=== PATIENT | male | born 1970 | race Caucasian/White ===

== ENCOUNTER 2016-09-06 10:34 | Emergency (ER) | payer OTHER ==
[2016-09-06 10:47] VITALS: O2SAT 100
--- NOTE | 2016-09-06 11:30 | ERPHSYRPT ---
- History of Present Illness Time Seen by Provider: 09/06/16 10:45 Source: patient Exam Limitations: no limitations Patient Subjective Stated Complaint: pt states around 0900 on 09/05/16 he fell backwards injuring left side of back while taking decorations down. pt c/o pain to left back and ribs. Triage Nursing Assessment: pt pink, warm, dry. no bruising or swelling noted. lung sounds clear and equal bilaterally. Occurred: yesterday Reason for Fall: tripped Injuries/Pain Location: chest Loss of Consciousness: no loss of consciousness Quality: aching Severity of Pain-Max: moderate Severity of Pain-Current: moderate Modifying Factors: Improves With: movement Associated Symptoms (Fall): denies symptoms Allergies/Adverse Reactions: No Known Drug Allergies Allergy (Verified 09/06/16 10:48) Home Medications: Desvenlafaxine Succinate [Pristiq ER] 50 mg PO BID 06/27/16 [History] Hx Tetanus, Diphtheria Vaccination/Date Given: Yes (up to date) Hx Influenza Vaccination/Date Given: No Hx Pneumococcal Vaccination/Date Given: No Immunizations Up to Date: Yes - Review of Systems Constitutional: No Symptoms Eyes: No Symptoms Ears, Nose, & Throat: No Symptoms Respiratory: No Symptoms Cardiac: Chest Pain, Other (wall pain after fall onto left side off ladder) Abdominal/Gastrointestinal: No Symptoms Musculoskeletal: Fall Skin: No Symptoms Neurological: No Symptoms Psychological: No Symptoms Endocrine: No Symptoms Hematologic/Lymphatic: No Symptoms - Past Medical History Pertinent Past Medical History: Yes Neurological History: No Pertinent History ENT History: No Pertinent History Cardiac History: Deep Vein Thrombosis Respiratory History: No Pertinent History Endocrine Medical History: No Pertinent History Musculoskeletal History: Other GI Medical History: Hepatitis History: No Pertinent History Psycho-Social History: Anxiety, Bipolar, Depression Male Reproductive Disorders: No Pertinent History Other Medical History: HEP C. DVT IN LEFT LEG. CELLULTIES LEFT LEG - Past Surgical History Past Surgical History: Yes Neuro Surgical History: No Pertinent History Cardiac: No Pertinent History Respiratory: No Pertinent History Gastrointestinal: No Pertinent History Genitourinary: No Pertinent History Musculoskeletal: Orthopedic Surgery Male Surgical History: No Pertinent History Other Surgical History: cyst removed. CARPAL TUNNEL IN RIGHT HAND - Social History Smoking Status: Current every day smoker How long have you smoked: 27 Exposure to second hand smoke: Yes Drug Use: none Patient Lives Alone: No Significant Family History: heart disease - Nursing Vital Signs Nursing Vital Signs: Initial Vital Signs Temperature 98.5 F Temperature Source Oral Pulse Rate 68 Respiratory Rate 18 Blood Pressure 141/87 Pain Intensity 9 - Benitez Coma Score Best Eye Response (Benitez): (4) open spontaneously Best Verbal Response (Benitez): (5) oriented Best Motor Response (Benitez): (6) obeys commands [place] Total: 15 - Physical Exam General Appearance: mild distress Head Injury: no evidence of injury Eye Exam: PERRL/EOMI, eyes nml inspection ENT Exam: airway nml Neck Exam: supple, trachea midline, full range of motion, normal alignment Respiratory/Chest Exam: chest tenderness (Mild tenderness left chest wall without ecchymosis or abrasion), normal breath sounds Cardiovascular Exam: normal heart sounds, regular rate/rhythm, normal peripheral pulses Gastrointestinal Exam: soft, normal bowel sounds Back Exam: normal inspection, normal range of motion Extremity Exam: normal inspection, normal range of motion, pelvis stable Neurologic Exam: alert, oriented x 3, cooperative Skin Exam: normal color, warm, dry SpO2 Interpretation: normal SpO2: 100 Oxygen Delivery: Room Air - Course Nursing assessment & vital signs reviewed: Yes - Radiology Exams Chest X-ray Interpretation: Discussed w/ radiologist (Few left lung granulomas. No acute abn. Specifically, no rib Fx noted.) Ordered Tests: Active Orders 24 hr Category Date Time Status CHEST 2 VIEWS (PA AND LAT) Stat Exams 09/06/16 11:08 Completed RIBS UNILATERAL Stat Exams 09/06/16 11:08 Completed - Progress Progress: improved Counseled pt/family regarding: diagnosis, need for follow-up (with PCP 1 week), rad results - Departure Time of Disposition: 11:35 Departure Disposition: Home Clinical Impression: Chest wall contusion Qualifiers: Encounter type: subsequent encounter Laterality: left Qualified Code(s): S20.212D - Contusion of left front wall of thorax, subsequent encounter Condition: Stable Critical Care Time: No
--- NOTE | 2016-09-06 11:34 | XRAY ---
Indication: Pain following fall. Comparison: None 2 views of the left ribs demonstrates a few left lung calcified granulomas. No other bony, articular, or soft tissue abnormalities.
--- NOTE | 2016-09-06 11:36 | XRAY ---
Indication: Left-sided pain following fall. Comparison: June 27, 2016 PA/lateral chest remains slightly underinflated again with bilateral calcified granulomas and minimal left base atelectasis/scarring. No focal infiltrate, consolidation, effusion, or pneumothorax. Heart is not enlarged. Bony thorax intact. Impression: Stable nonacute chest with chronic features.
[2016-09-06 12:05] VITALS: BP 127/67; PULSE 76
== END 2016-09-06 12:04 | disposition home or self-care (01) ==
LOC: ED 10:34
DX: S20.212D Contusion of left front wall of thorax, subsequent encounter (principal); W01.0XXA Fall on same level from slipping, tripping and stumbling without subsequent striking against object, initial encounter
CPT/HCPCS: 71020; 71100; 99282

== ENCOUNTER 2017-01-06 15:42 | Emergency (ER) | payer OTHER ==
[2017-01-06] MEDS ORDERED: MOTRIN 600 MG PO ONE (15:46)
[2017-01-06] MEDS ORDERED: MOTRIN 600 MG ONE (15:51)
--- NOTE | 2017-01-06 15:53 | ERPHSYRPT ---
- History of Present Illness Time Seen by Provider: 01/06/17 15:46 Source: patient, EMS Exam Limitations: no limitations Physician History: patient tripped and fell straining his left knee after his dog got tangled around his left lower leg; pain in left knee from twisting when he fell; no prior hx; no direct trauma; no other injuries or complaints Method of Injury: fell, twisted Occurred: just prior to arrival, this afternoon Quality: aching Severity of Pain-Max: moderate Severity of Pain-Current: mild Lower Extremities Pain: knee: left (pain anterior and posterior; able to ambulate and bear wt after fall) Modifying Factors: Improves With: immobilization (helps) Associated Symptoms: none Allergies/Adverse Reactions: No Known Drug Allergies Allergy (Verified 01/06/17 15:58) Hx Tetanus, Diphtheria Vaccination/Date Given: Yes (up to date) Hx Influenza Vaccination/Date Given: No Hx Pneumococcal Vaccination/Date Given: No - Review of Systems Constitutional: No Symptoms Eyes: No Symptoms Ears, Nose, & Throat: No Symptoms Respiratory: No Cough, No Dyspnea, No Wheezing Cardiac: No Chest Pain, No Palpitations, No Syncope Abdominal/Gastrointestinal: No Abdominal Pain, No Nausea, No Vomiting, No Diarrhea Genitourinary Symptoms: No Symptoms Musculoskeletal: Arthralgias, Fall, Injury (left knee), Joint Pain (left knee), No Joint Redness, No Joint Swelling Skin: No Symptoms Neurological: No Symptoms Psychological: No Symptoms Endocrine: No Symptoms Hematologic/Lymphatic: No Symptoms Immunological/Allergic: No Symptoms - Past Medical History Pertinent Past Medical History: Yes Neurological History: No Pertinent History ENT History: No Pertinent History Cardiac History: Deep Vein Thrombosis Respiratory History: No Pertinent History Endocrine Medical History: No Pertinent History Musculoskeletal History: Other GI Medical History: Hepatitis History: No Pertinent History Psycho-Social History: Anxiety, Bipolar, Depression Male Reproductive Disorders: No Pertinent History Other Medical History: HEP C. DVT IN LEFT LEG. CELLULTIES LEFT LEG - Past Surgical History Past Surgical History: Yes Neuro Surgical History: No Pertinent History Cardiac: No Pertinent History Respiratory: No Pertinent History Gastrointestinal: No Pertinent History Genitourinary: No Pertinent History Musculoskeletal: Orthopedic Surgery Male Surgical History: No Pertinent History Other Surgical History: cyst removed. CARPAL TUNNEL IN RIGHT HAND - Social History Smoking Status: Current every day smoker How long have you smoked: 27 Exposure to second hand smoke: Yes Alcohol Use: None Drug Use: none Patient Lives Alone: No Significant Family History: heart disease - Nursing Vital Signs Nursing Vital Signs: Initial Vital Signs Temperature 98.4 F Pulse Rate 72 Respiratory Rate 14 Blood Pressure [Right Arm] 124/75 Pain Intensity 9 - Physical Exam General Appearance: mild distress (pain left knee), alert Eyes, Ears, Nose, Throat Exam: normal ENT inspection, TMs normal, pharynx normal , moist mucous membranes Neck Exam: normal inspection, non-tender, supple, full range of motion Cardiovascular/Respiratory Exam: chest non-tender, normal breath sounds, regular rate/rhythm, heart sounds normal, no ecchymosis, no JVD, no M/R/G, no respiratory distress Gastrointestinal/Abdominal Exam: non-tender, soft, no organomegaly Back Exam: normal inspection, normal range of motion, No CVA tenderness, No vertebral tenderness, No rash Hips Exam: bilateral: non-tender, normal inspection, normal range of motion, no evidence of injury Legs Exam: bilateral leg: non-tender, normal inspection, normal range of motion , no evidence of injury Knees Exam: right knee: non-tender, left knee: bone tenderness (mild anterior patella), pain (anterior and posterior), soft tissue tenderness (medial and posterior mild), bilateral knee: normal inspection, normal range of motion, no evidence of injury, other (stable to stress; FROM; no ilan sign; no laxity) Ankle Exam: bilateral ankle: non-tender, normal inspection, normal range of motion, no evidence of injury Foot Exam: bilateral foot: non-tender, normal inspection, normal range of motion , no evidence of injury DTR - Lower Extremities Exam: knee (R): 4+, knee (L): 4+ Neuro/Tendon Exam: normal sensation, normal motor functions, normal tendon functions, responds to pain, no evidence tendon injury Mental Status Exam: alert, oriented x 3, cooperative Skin Exam: normal color, warm, dry, No rash Procedures - Splinting Location of Splint: Left, Knee Type of Splint: Other (knee immobilyzer) Splint Applied By: ED Nurse Pre-Proc Neuro Vasc Exam: normal Post-Proc Neuro Vasc Exam: neurovascular intact, unchanged from pre-exam - Course Nursing assessment & vital signs reviewed: Yes - Radiology Exams Left Knee X-ray Interpretation: Interpreted by me, No Fracture, Other (mild DJD) Ordered Tests: Active Orders 24 hr Category Date Time Status Cold Application STAT Care 01/06/17 15:47 Active Re-Check Vital Signs STAT Care 01/06/17 15:46 Active Splint STAT Care 01/06/17 16:09 Ordered KNEE (3 VIEWS) Stat Exams 01/06/17 15:47 Ordered Medication Summary Discontinued Medications Generic Name Dose Route Start Last Admin Trade Name Judit PRN Reason Stop Dose Admin Ibuprofen 600 mg 01/06/17 15:46 01/06/17 15:52 Motrin 600 Mg PO 01/06/17 15:47 600 mg STAT ONE Administration Ibuprofen Confirm 01/06/17 15:51 Motrin 600 Mg Administered 01/06/17 15:52 Dose 600 mg .ROUTE .STK-MED ONE - Progress Progress: improved (after xr, meds and aplint application), pain not gone completely, re-examined (after xr and meds) Progress Note: 01/06/17 15:54 ice applied; meds given; xr pending; will recheck after xr 01/06/17 16:12 reviewed xr findings with patient, knee immobilyzer applied under my directions ; no NV compromise after; treatment plan and instructions given Counseled pt/family regarding: diagnosis, need for follow-up, rad results - Departure Time of Disposition: 16:14 Departure Disposition: Home Clinical Impression: Strain of left knee Condition: Stable Critical Care Time: No Referrals: JEANNE CORBETT MD [Primary Care Provider] - Instructions: Knee Sprain Additional Instructions: Acute Sprain Instructions lower extremity; R.I.C.E.; wear splint/immobilyzer as directed; observe for neuro-vascular compromise ( change in color; increased pain; cold to touch); Use crutches, walker, cane as directed. FU LMD/ specialist as directed; call for appointment as directed; Return if problems; Take meds as prescribed. Follow-up with family doctor as directed. Call for appointment. Return if any problems. If you smoke please stop. Call or follow up with your family doctor for assistance if you need it to stop. Please wear your seatbelt when driving. Have a nice day. Thank you for allowing us to participate in your care today. :o) Dr Mason Simpson Prescriptions: Naproxen Sodium [Anaprox Ds] 550 mg PO Q8HPRN PRN #14 tablet PRN Reason: Pain
[2017-01-06 15:56] VITALS: BP 124/75; PULSE 72; O2SAT 99
--- NOTE | 2017-01-06 19:35 | XRAY ---
Indication: Pain following twisting injury. Comparison: February 09, 2011. 3 views of the left knee again demonstrates mild medial compartment degenerative joint space narrowing/spurring. New spurring of the lateral tibial plateau. No acute fracture, dislocation, or soft tissue abnormalities.
== END 2017-01-06 16:27 | disposition home or self-care (01) ==
LOC: ED 15:42
DX: S83.92XA Sprain of unspecified site of left knee, initial encounter (principal); W01.0XXA Fall on same level from slipping, tripping and stumbling without subsequent striking against object, initial encounter
CPT/HCPCS: 73562; 99283; L1830; A9270-GY

== ENCOUNTER 2017-08-26 14:19 | Emergency (ER) | payer OTHER ==
[2017-08-26 14:33] VITALS: PULSE 72
--- NOTE | 2017-08-26 15:07 | ERPHSYRPT ---
- History of Present Illness Time Seen by Provider: 08/26/17 14:58 Source: patient Exam Limitations: no limitations Patient Subjective Stated Complaint: c/o throat pain, nasal congestion and eyes having drainage last 1-2 days Triage Nursing Assessment: c/o sore throat, nasal congestion and eye drainage. Physician History: 47 year old white male arrives with complaint of sorethroat, nasal congestion, drainage from eyes and cough for 2-3 days Pmh Hepatitis, dvt, anxiety bipolar depression hepatitis c cellulitis PSH carpal tunnel right hand Timing/Duration: day(s) (3 days) Severity: moderate Modifying Factors: Improves With: nothing Associated Symptoms: cough, other (sore throat, conjunctivitis), No nausea, No vomiting, No abdominal pain, No shortness of breath, No heartburn, No diaphoresis, No chills, No chest pain, No fever, No headaches, No loss of appetite, No malaise, No rash, No syncope, No seizure, No weakness Allergies/Adverse Reactions: No Known Drug Allergies Allergy (Verified 01/06/17 15:58) Hx Tetanus, Diphtheria Vaccination/Date Given: Yes Hx Influenza Vaccination/Date Given: Yes Hx Pneumococcal Vaccination/Date Given: No Immunizations Up to Date: Yes - Review of Systems Constitutional: No Fever, No Chills, No Fatigue, No Lethargy, No Malaise, No Night Sweats, No Weight Loss Eyes: Eye Pain, Eye Redness, Other (eyes matted shut in am), No Discharge, No Photophobia, No Tearing, No Vision Changes, No Double Vision, No Foreign Body Sensation Ears, Nose, & Throat: Nose Congestion, Nose Discharge, Sinus Drainage, Throat Pain, No Ear Pain, No Ear Discharge, No Hearing Changes, No Tinnitus, No Epistaxis, No Mouth Pain, No Mouth Swelling, No Loose Teeth, No Throat Swelling , No Hoarse, No Painful Swallowing, No Snoring, No Stridor Respiratory: Cough, No Cyanosis, No Dyspnea, No Dyspnea on Exertion (LEON), No Stridor, No Wheezing Cardiac: No Chest Pain, No Edema, No Syncope Abdominal/Gastrointestinal: No Symptoms, No Abdominal Pain, No Nausea, No Vomiting, No Diarrhea, No Constipation, No Hematochezia, No Melena, No Dysphagia , No Appetite Changes Genitourinary Symptoms: No Dysuria Musculoskeletal: No Back Pain, No Neck Pain Skin: No Rash Neurological: No Dizziness, No Focal Weakness, No Sensory Changes Psychological: No Symptoms Endocrine: No Symptoms All Other Systems: Reviewed and Negative - Past Medical History Pertinent Past Medical History: Yes Neurological History: No Pertinent History ENT History: No Pertinent History Cardiac History: Deep Vein Thrombosis Respiratory History: No Pertinent History Endocrine Medical History: No Pertinent History Musculoskeletal History: Other GI Medical History: Hepatitis History: No Pertinent History Psycho-Social History: Anxiety, Bipolar, Depression Male Reproductive Disorders: No Pertinent History Other Medical History: HEP C. DVT IN LEFT LEG. CELLULTIES LEFT LEG - Past Surgical History Past Surgical History: Yes Neuro Surgical History: No Pertinent History Cardiac: No Pertinent History Respiratory: No Pertinent History Gastrointestinal: No Pertinent History Genitourinary: No Pertinent History Musculoskeletal: Orthopedic Surgery Male Surgical History: No Pertinent History Other Surgical History: cyst removed. CARPAL TUNNEL IN RIGHT HAND - Social History Smoking Status: Current every day smoker How long have you smoked: 27 Exposure to second hand smoke: Yes Alcohol Use: None Drug Use: none Patient Lives Alone: No Significant Family History: heart disease - Nursing Vital Signs Nursing Vital Signs: Initial Vital Signs Temperature 98.2 F 08/26/17 14:30 Pulse Rate 72 08/26/17 14:30 Respiratory Rate 20 08/26/17 14:30 Blood Pressure 148/94 08/26/17 14:30 O2 Sat by Pulse Oximetry 97 08/26/17 14:30 Pain Scale Pain Intensity 5 - Physical Exam General Appearance: mild distress, alert Eye Exam: other (eyes perrla eomi, fundi unremarkable, both conjunctiva erythematous) Ears, Nose, Throat Exam: TMs normal, pharyngeal erythema, other (throat clear, boggy erythematous nasal mucosa, yellow drainage left naris) Neck Exam: normal inspection, non-tender, supple, full range of motion Respiratory Exam: normal breath sounds, lungs clear, No respiratory distress Cardiovascular Exam: regular rate/rhythm, normal heart sounds, normal peripheral pulses Gastrointestinal/Abdomen Exam: soft, normal bowel sounds, No tenderness, No mass Back Exam: normal inspection, normal range of motion, No CVA tenderness, No vertebral tenderness Extremity Exam: normal inspection, normal range of motion, pelvis stable Neurologic Exam: alert, oriented x 3, cooperative, normal mood/affect, nml cerebellar function, nml station & gait, sensation nml, No motor deficits Skin Exam: normal color, warm, dry, No rash Lymphatic Exam: No adenopathy SpO2 Interpretation: normal (97%) SpO2: 97 Oxygen Delivery: Room Air - Course Nursing assessment & vital signs reviewed: Yes - Progress Progress: improved Progress Note: 08/26/17 15:08 47-year-old white male with history of DVT, hepatitis, anxiety, bipolar Patient arrives with complaints of nasal congestion drainage from the nose, sore throat, bilateral conjunctivae colitis symptoms for 2-3 days. No vomiting. On physical examination patient has a boggy erythematous nasal mucosa with yellow drainage in the left naris his throat is erythematous. He does have bilateral conjunctivitis Will go ahead and place patient on Keflex 500 mg orally every 6 hours #40. He is to take plenty of fluids. Tylenol every 4-6 hours as needed for pain. Follow-up with his family doctor if symptoms worsen over 48 hours or persist longer than one week - Departure Time of Disposition: 15:09 Departure Disposition: Home Clinical Impression: Sinusitis Qualifiers: Sinusitis location: unspecified location Chronicity: acute Recurrence: non- recurrent Qualified Code(s): J01.90 - Acute sinusitis, unspecified Conjunctivitis Qualifiers: Conjunctivitis type: acute Acute conjunctivitis type: bacterial Laterality: bilateral Qualified Code(s): H10.33 - Unspecified acute conjunctivitis, bilateral Pharyngitis Qualifiers: Pharyngitis/tonsillitis etiology: unspecified etiology Qualified Code(s): J02.9 - Acute pharyngitis, unspecified Condition: Fair Critical Care Time: No Referrals: JEANNE CORBETT MD [Primary Care Provider] - Additional Instructions: Return home. Plenty of fluids. Keflex 500 mg orally 4 times a day for 10 days. Tylenol every 4 hours as needed for temperature greater than 100.5 or pain. Follow-up with your family doctor if symptoms are worse, nowhere 48 hours, or persist longer than one week. Return for acute distress or for severe symptoms. Prescriptions: Cephalexin Mh 500 mg [Keflex 500 mg] 500 mg PO Q6H #40 capsule
[2017-08-26 15:28] VITALS: BP 137/93; O2SAT 96
== END 2017-08-26 15:25 | disposition home or self-care (01) ==
LOC: ED 14:19
DX: J01.90 Acute sinusitis, unspecified (principal); H10.33 Unspecified acute conjunctivitis, bilateral; J02.9 Acute pharyngitis, unspecified; R05 Cough
CPT/HCPCS: 99281

== ENCOUNTER 2017-12-02 04:25 | Emergency (ER) | payer OTHER ==
[2017-12-02 04:38] VITALS: PULSE 68
--- NOTE | 2017-12-02 04:52 | ERPHSYRPT ---
- History of Present Illness Time Seen by Provider: 12/02/17 04:51 Source: patient Exam Limitations: no limitations Patient Subjective Stated Complaint: pt states he tripped over an extension cord at home and dropped his coffee cup and cut his left arm Triage Nursing Assessment: pt alert and oriented, washcloth held in place over left forearm, laceration approximately 4 cm long Physician History: pt states he tripped over an extension cord at home and dropped his coffee cup and cut his left forearm Occurred: just prior to arrival Method of Injury: incised Severity of Pain-Max: none Severity of Pain-Current: none Extremities Pain Location: forearm: left Modifying Factors: Improves With: cold therapy Associated Symptoms: none Allergies/Adverse Reactions: No Known Drug Allergies Allergy (Verified 01/06/17 15:58) Hx Tetanus, Diphtheria Vaccination/Date Given: (unknown) Hx Influenza Vaccination/Date Given: Yes Hx Pneumococcal Vaccination/Date Given: No - Review of Systems Constitutional: No Symptoms Eyes: No Symptoms Ears, Nose, & Throat: No Symptoms Respiratory: No Symptoms Cardiac: No Symptoms Abdominal/Gastrointestinal: No Symptoms Skin: Other (laceration on left forearm) - Past Medical History Pertinent Past Medical History: Yes Neurological History: No Pertinent History ENT History: No Pertinent History Cardiac History: Deep Vein Thrombosis Respiratory History: No Pertinent History Endocrine Medical History: No Pertinent History Musculoskeletal History: Other GI Medical History: Hepatitis History: No Pertinent History Psycho-Social History: Anxiety, Bipolar, Depression Male Reproductive Disorders: No Pertinent History Other Medical History: HEP C. DVT IN LEFT LEG. CELLULTIES LEFT LEG - Past Surgical History Past Surgical History: Yes Neuro Surgical History: No Pertinent History Cardiac: No Pertinent History Respiratory: No Pertinent History Gastrointestinal: No Pertinent History Genitourinary: No Pertinent History Musculoskeletal: Orthopedic Surgery Male Surgical History: No Pertinent History Other Surgical History: cyst removed. CARPAL TUNNEL IN RIGHT HAND - Social History Smoking Status: Current every day smoker How long have you smoked: 27 Exposure to second hand smoke: Yes Alcohol Use: None Drug Use: none Patient Lives Alone: No Significant Family History: heart disease - Nursing Vital Signs Nursing Vital Signs: Initial Vital Signs Temperature 98.7 F 12/02/17 04:32 Pulse Rate 68 12/02/17 04:32 Respiratory Rate 18 12/02/17 04:32 Blood Pressure 158/99 12/02/17 04:32 O2 Sat by Pulse Oximetry 98 12/02/17 04:32 Pain Scale Pain Intensity 8 - Physical Exam General Appearance: no apparent distress Eyes, Ears, Nose, Throat Exam: normal ENT inspection Neck Exam: normal inspection SpO2: 98 Oxygen Delivery: Room Air Procedures - Laceration/Wound Repair Left Arm Wound Location: Left, lower arm Wound Length (cm): 4 Wound's Depth, Shape: superficial Wound Explored: clean Irrigated: Yes Hibiclens Prep: Yes Anesthesia: local, 1% Lidocaine Volume Anesthetic (ccs): 5 Wound Debrided: minimal Wound Repaired With: sutures Suture Size/Type: 3-0, ethilon Number of Sutures: 5 Layer Closure?: No Sterile Dressing Applied?: Yes Splint Applied?: No Sling Applied?: No - Course Nursing assessment & vital signs reviewed: Yes - Progress Progress: improved Counseled pt/family regarding: diagnosis, need for follow-up - Departure Time of Disposition: 05:07 Departure Disposition: Home Clinical Impression: Laceration of forearm Qualifiers: Encounter type: initial encounter Laterality: left Qualified Code(s): S51.812A - Laceration without foreign body of left forearm, initial encounter Condition: Stable Critical Care Time: No Referrals: JEANNE CORBETT MD [Primary Care Provider] - Instructions: Laceration Repair With Stitches (DC) Additional Instructions: JESUS VENTURAMARILEE PATEL was seen on 12/02/17 n the Emergency Room. At that time you were treated for an emergent condition, during your visit Laboratory, Radiology and/or other procedures may have been ordered. It is very important that you follow-up with your Primary Care Physician JEANNE CORBETT within the next 24-48 hours to review your Emergency Room visit and the final results of testing that was ordered. Some test results such as Urine Cultures, Blood Cultures, and other cultures if ordered will not be finalized for 24-48 hours. If you do not have a Primary Care Provider please call the medical records department at [phone] to obtain a copy of your results or you may sign into our patient portal to obtain these results by visiting us @ [email or web address] and completing the following steps: 1. Click on the Patient Portal link 2. Click the Patient Self Enrollment Link to complete the enrollment form and entering your 3. Once the enrollment form is completed you will receive an email with a temporary ID and password at the email address you provided. 4. Next choose a user name and password. Your user name must be at least 4 characters long and your password must be at least 4 characters long. 5. Choose a security question from the list and provide your answer to the question. If you already have signed into the Health Portal you may access your Health Care Information 26/03 by the following steps: 1. Login to our website @ [email or web address] 2. Enter your original user name and password. FAQS The [facility] Health Portal is an online tool that contains your Lab Results, Radiology Reports, Visit History, Discharge Instructions and Health Summary Lab and Radiology Results will not be available for 72 hours on the portal. The Portal is a secure site, passwords are encryted and URLs are re-written so they cannot be copied and pasted. You and authorized family members are the only ones who can access your Portal. Also there is a timeout feature that protects your information if you leave the Portal page open. If you have technical difficulty please use the Contact Us link on the page this will allow you to submit any questions you have regarding the Portal or you may contact the Medical Record Department at [phone]. LACERATION CARE 1. Do not use peroxide, merthiolate, alcohol, or betadine. 2. Keep wound clean and dry. 3. Change dressing if it becomes wet or soiled. 4. If you must work, wear protective covering. 5. You may return to the emergency department or see your family physician for suture removal. 6. See your family physician or return to the emergency department for any of the following signs or symptoms: A. Redness B. Swelling C. Discolored drainage D. Red streaks E. Elevated temperature F. Other signs of infection Forms: Work/School Release Form
[2017-12-02] MEDS ORDERED: Adacel Vial IM ONE ×2 (05:07→05:10)
[2017-12-02 05:26] VITALS: BP 139/96; O2SAT 96
== END 2017-12-02 05:23 | disposition home or self-care (01) ==
LOC: ED 04:25
PROC: 0HQEXZZ Repair Left Lower Arm Skin, External Approach (ICD-10-PCS; principal; 2017-12-02)
DX: S51.812A Laceration without foreign body of left forearm, initial encounter (principal); W26.8XXA Contact with other sharp object(s), not elsewhere classified, initial encounter
CPT/HCPCS: 12002; 90471; 90715; 96372; 99284

== ENCOUNTER 2018-01-16 06:34 | Emergency (ER) | payer OTHER ==
--- NOTE | 2018-01-16 07:35 | ERPHSYRPT ---
- History of Present Illness Time Seen by Provider: 01/16/18 07:28 Source: patient Exam Limitations: no limitations Patient Subjective Stated Complaint: pt states "i have been working a lot of hours lately at the [employer] and just feel like i am drained." pt co excessive tiredness and states he aches all over and feels like "i got ran over by a truck." pt is concerned also bc he has a ho hep c and is unsure if his symptoms relate to that. Triage Nursing Assessment: pt a&o x3; skin p, w, & d; ambulated to room per self ; no obvious distress or discomfort noted. Physician History: patient with history of hep C who presents with generalized weakness for past 5- 7 days. Patient states he has been working 16 hours shifts for the past month and feels like that he is "wearing out." Patient also complains of body ache and congestive cough, but denies any fever/chills, chest pain, shortness of breath, diaphoresis, palpitation, sore throat, back/abdominal pain or urinary symptoms. Patient tried to get time off but his employer could not fill his request. Timing/Duration: day(s) (5-7), gradual onset Severity: mild Modifying Factors: Improves With: rest (improves) Associated Symptoms: weakness, No nausea, No vomiting, No abdominal pain, No shortness of breath, No chest pain, No fever, No headaches, No loss of appetite , No syncope Allergies/Adverse Reactions: No Known Drug Allergies Allergy (Verified 01/16/18 06:48) Hx Tetanus, Diphtheria Vaccination/Date Given: Yes Hx Influenza Vaccination/Date Given: Yes Hx Pneumococcal Vaccination/Date Given: No - Review of Systems Constitutional: No Fever, No Chills Eyes: No Symptoms Ears, Nose, & Throat: No Symptoms Respiratory: Cough, No Dyspnea, No Dyspnea on Exertion (LEON) Cardiac: No Symptoms, No Chest Pain, No Edema, No Syncope Abdominal/Gastrointestinal: No Symptoms, No Abdominal Pain, No Nausea, No Vomiting, No Diarrhea Genitourinary Symptoms: No Symptoms, No Dysuria Musculoskeletal: Myalgias, No Back Pain, No Neck Pain Skin: No Symptoms, No Rash Neurological: No Symptoms, No Dizziness, No Focal Weakness, No Sensory Changes Psychological: No Symptoms Endocrine: No Symptoms Hematologic/Lymphatic: No Symptoms Immunological/Allergic: No Symptoms All Other Systems: Reviewed and Negative - Past Medical History Pertinent Past Medical History: Yes Neurological History: No Pertinent History ENT History: No Pertinent History Cardiac History: Deep Vein Thrombosis Respiratory History: No Pertinent History Endocrine Medical History: No Pertinent History Musculoskeletal History: Other GI Medical History: Hepatitis History: No Pertinent History Psycho-Social History: Anxiety, Bipolar, Depression Male Reproductive Disorders: No Pertinent History Other Medical History: HEP C. DVT IN LEFT LEG. CELLULTIES LEFT LEG - Past Surgical History Past Surgical History: Yes Neuro Surgical History: No Pertinent History Cardiac: No Pertinent History Respiratory: No Pertinent History Gastrointestinal: No Pertinent History Genitourinary: No Pertinent History Musculoskeletal: Orthopedic Surgery Male Surgical History: No Pertinent History Other Surgical History: cyst removed. CARPAL TUNNEL IN RIGHT HAND - Social History Smoking Status: Current every day smoker How long have you smoked: 30 years Exposure to second hand smoke: No Alcohol Use: None Drug Use: none Patient Lives Alone: No Significant Family History: heart disease - Nursing Vital Signs Nursing Vital Signs: Initial Vital Signs Temperature 98.3 F 01/16/18 06:41 Pulse Rate 72 01/16/18 06:41 Respiratory Rate 16 01/16/18 06:41 Blood Pressure 126/88 01/16/18 06:41 O2 Sat by Pulse Oximetry 98 01/16/18 06:41 Pain Scale Pain Intensity 0 - Physical Exam General Appearance: no apparent distress, alert, other (resting comfortably) Eye Exam: PERRL/EOMI, eyes nml inspection Ears, Nose, Throat Exam: normal ENT inspection, TMs normal, pharynx normal, moist mucous membranes Neck Exam: normal inspection, non-tender, supple, full range of motion Respiratory Exam: normal breath sounds, lungs clear, No respiratory distress Cardiovascular Exam: regular rate/rhythm, normal heart sounds, normal peripheral pulses Gastrointestinal/Abdomen Exam: soft, normal bowel sounds, No tenderness, No mass Back Exam: normal inspection, normal range of motion, No CVA tenderness, No vertebral tenderness Extremity Exam: normal inspection, normal range of motion, pelvis stable Neurologic Exam: alert, oriented x 3, cooperative, normal mood/affect, nml cerebellar function, nml station & gait, sensation nml, No motor deficits Skin Exam: normal color, warm, dry, No rash Lymphatic Exam: No adenopathy SpO2: 98 Oxygen Delivery: Room Air - Course Nursing assessment & vital signs reviewed: Yes Ordered Tests: Active Orders 24 hr Category Date Time Status CBC Stat Lab 01/16/18 07:02 Completed CMP Stat Lab 01/16/18 07:02 Completed UA W/ MICROSCOPIC Stat Lab 01/16/18 07:03 Completed Lab/Rad Data: Laboratory Result Diagrams 01/16/18 07:02 01/16/18 07:02 Laboratory Results 01/16/18 01/16/18 01/16/18 Range/Units 07:03 07:02 07:02 WBC 6.4 (4.0-10.5) K/mm3 RBC 5.14 (4.1-5.6) M/mm3 Hgb 17.0 (12.5-18.0) gm/dl Hct 49.4 (42-50) % MCV 96.1 (78-100) fl MCH 33.1 H (26-32) pg MCHC 34.4 (32-36) g/dl RDW 14.1 H (11.5-14.0) % Plt Count 128 L (150-450) K/mm3 MPV 11.3 H (6-9.5) fl Sodium 141 (137-145) mmol/L Potassium 4.0 (3.5-5.1) mmol/L Chloride 108 H (98-107) mmol/L Carbon Dioxide 26 (22-30) mmol/L Anion Gap 10.9 (5-15) MEQ/L BUN 19 (9-20) mg/dL Creatinine 0.88 (0.66-1.25) mg/dL Estimated GFR > 60.0 ML/MIN Glucose 105 (74-106) mg/dL Calcium 9.0 (8.4-10.2) mg/dL Total Bilirubin 0.80 (0.2-1.3) mg/dL AST 154 H (17-59) U/L ALT 220 H (0-50) U/L Alkaline Phosphatase 158 H (38-126) U/L Serum Total Protein 7.0 (6.3-8.2) g/dL Albumin 3.2 L (3.5-5.0) g/dL Ur Collection Type VOID Urine Color YELLOW (YELLOW) Urine Appearance CLEAR (CLEAR) Urine pH 5.0 (5-6) Ur Specific [place] 1.020 (1.005-1.025) Urine Protein NEGATIVE (Negative) Urine Ketones NEGATIVE (NEGATIVE) Urine Blood 5-10 (0-5) Darryn/ul Urine Nitrite NEGATIVE (NEGATIVE) Urine Bilirubin NEGATIVE (NEGATIVE) Urine Urobilinogen NORMAL (0-1) mg/dL Ur Leukocyte Esterase NEGATIVE (NEGATIVE) Urine Microscopic RBC 0-2 (0-2) /HPF Urine Microscopic WBC 0-2 (0-5) /HPF Ur Epithelial Cells RARE (FEW) /HPF Calcium Oxalate Crystal 2-5 (NEGATIVE) /HPF Urine Bacteria RARE (NEGATIVE) /HPF Urine Mucus MODERATE (NEGATIVE) /HPF Urine Culture Reflexed NO (NO) Urine Glucose NEGATIVE (NEGATIVE) mg/dL Specimen Received 01/16/18 0703 - Progress Progress: improved Progress Note: 01/16/18 07:36 patient does not appear in any distress. We will obtain blood work and urine for evaluation. Counseled pt/family regarding: lab results, diagnosis - Departure Time of Disposition: 08:13 Departure Disposition: Home Clinical Impression: Elevated liver enzymes, Bronchitis, Hepatitis C Condition: Stable Critical Care Time: No Referrals: JEANNE CORBETT MD [Primary Care Provider] - Instructions: Muscle Weakness, Acute Bronchitis Additional Instructions: Rx: Zithromax. Follow up to for elevated liver enzymes. Increase clear liquids. Return for worse cough, fever, shortness of breath, dizziness, weakness or any problems Prescriptions: Azithromycin [Zithromax Tri-Benjamin 500 mg] 500 mg PO DAILY 3 Days #3 tablet
[2018-01-16 07:36] LABS: Hematocrit 49.4 % (42-50); Mean Cell Volume 96.1 fl (78-100); Mean Corpuscular Hemoglobin 33.1 pg (26-32); Mean Corpuscular Hgb Concent. 34.4 g/dl (32-36); Mean Platelet Volume 11.3 fl (6-9.5); Platelet Count 128 K/mm3 (150-450); Red Blood Count 5.14 M/mm3 (4.1-5.6); Red Cell Distribution Width 14.1 % (11.5-14.0); White Blood Count 6.4 K/mm3 (4.0-10.5)
[2018-01-16 07:56] LABS: Appearance CLEAR (CLEAR); Bacteria RARE /HPF (NEGATIVE); Bilirubin NEGATIVE (NEGATIVE); Epithelial Cells RARE /HPF (FEW); Glucose NEGATIVE (NEGATIVE); Ketones NEGATIVE (NEGATIVE); Leukocyte Esterase NEGATIVE (NEGATIVE); Mucus MODERATE /HPF (NEGATIVE); Nitrite NEGATIVE (NEGATIVE); Protein,Urine Dip NEGATIVE (Negative); RBC 0-2 /HPF (0-2); Urobilinogen NORMAL mg/dL (0-1); WBC 0-2 /HPF (0-5)
[2018-01-16 07:57] VITALS: BP 119/78; PULSE 60
[2018-01-16 08:01] LABS: ALBUMIN 3.2 g/dL (3.5-5.0); ALKALINE PHOSPHATASE 158 U/L (38-126); ANION GAP 10.9 MEQ/L (5-15); BLOOD UREA NITROGEN 19 mg/dL (9-20); CHLORIDE 108 mmol/L (98-107); Carbon Dioxide 26 mmol/L (22-30); Creatinine 1 0.88 mg/dL (0.66-1.25); Glucose 105 mg/dL (74-106); SGOT/AST 154 U/L (17-59); SGPT/ALT 220 U/L (0-50); SODIUM 141 mmol/L (137-145)
[2018-01-16 08:20] VITALS: O2SAT 98
== END 2018-01-16 08:33 | disposition home or self-care (01) ==
LOC: ED 06:34
DX: R74.8 Abnormal levels of other serum enzymes (principal); R53.1 Weakness; J40 Bronchitis, not specified as acute or chronic; B19.20 Unspecified viral hepatitis C without hepatic coma
CPT/HCPCS: 36000; 36415; 80053; 81000; 85027; 99283

== ENCOUNTER 2018-04-17 15:52 | Emergency (ER) | payer OTHER ==
--- NOTE | 2018-04-17 17:10 | ERPHSYRPT ---
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 Patient Subjective Stated Complaint: fadumo states he has been having pain and tightnessin his right foot /ankle x3days Triage Nursing Assessment: pt alert and orientedx3, ambulates by self , gait is steady, patient skin warm dry and intact, has some old scarring on both feet, pedal pulse spresent and equal bilateral feet, some swelling noted to inside of right foot just below ankle, no other complaints patietn able to bear weight but says feels like hes walking with no cushion, Physician History: The patient is a 47-year-old male complaining of pain to the inside of his right hind foot with swelling for the last 3 days. He denies any trauma. It hurts for him to walk. He has been taking Aleve to help with the pain but he has not taken any today. He denies fever or chills. A few years ago he had surgery to the medial aspect of his right foot. Method of Injury: unknown Occurred: days ago (3) Quality: constant Severity of Pain-Max: moderate Severity of Pain-Current: moderate Lower Extremities Pain: foot: right Modifying Factors: Improves With: nothing Associated Symptoms: none Allergies/Adverse Reactions: No Known Drug Allergies Allergy (Verified 01/16/18 06:48) Hx Tetanus, Diphtheria Vaccination/Date Given: Yes Hx Influenza Vaccination/Date Given: Yes Hx Pneumococcal Vaccination/Date Given: No Immunizations Up to Date: Yes - Review of Systems Constitutional: No Fever, No Chills Eyes: No Symptoms Ears, Nose, & Throat: No Symptoms Respiratory: No Cough, No Dyspnea Cardiac: No Chest Pain, No Edema, No Syncope Abdominal/Gastrointestinal: No Abdominal Pain, No Nausea, No Vomiting, No Diarrhea Genitourinary Symptoms: No Dysuria Musculoskeletal: No Back Pain, No Neck Pain Skin: Other (swelling and tenderness of right foot.) Neurological: No Dizziness, No Focal Weakness, No Sensory Changes Psychological: No Symptoms Endocrine: No Symptoms Hematologic/Lymphatic: No Symptoms Immunological/Allergic: No Symptoms All Other Systems: Reviewed and Negative - Past Medical History Pertinent Past Medical History: Yes Neurological History: No Pertinent History ENT History: No Pertinent History Cardiac History: Deep Vein Thrombosis Respiratory History: No Pertinent History Endocrine Medical History: No Pertinent History Musculoskeletal History: Other GI Medical History: Hepatitis History: No Pertinent History Psycho-Social History: Anxiety, Bipolar, Depression Male Reproductive Disorders: No Pertinent History Other Medical History: HEP C. DVT IN LEFT LEG. CELLULTIES LEFT LEG - Past Surgical History Past Surgical History: Yes Neuro Surgical History: No Pertinent History Cardiac: No Pertinent History Respiratory: No Pertinent History Gastrointestinal: No Pertinent History Genitourinary: No Pertinent History Musculoskeletal: Orthopedic Surgery Male Surgical History: No Pertinent History Other Surgical History: cyst removed. CARPAL TUNNEL IN RIGHT HAND - Social History Smoking Status: Current every day smoker How long have you smoked: 30 years Exposure to second hand smoke: No Alcohol Use: None Drug Use: none Patient Lives Alone: No Significant Family History: heart disease - Nursing Vital Signs Nursing Vital Signs: Initial Vital Signs Temperature 98.8 F 04/17/18 15:52 Pulse Rate 72 04/17/18 15:52 Respiratory Rate 20 04/17/18 15:52 Blood Pressure 123/82 04/17/18 15:52 O2 Sat by Pulse Oximetry 98 04/17/18 15:52 Pain Scale Pain Intensity 5 - Physical Exam General Appearance: alert Eyes, Ears, Nose, Throat Exam: moist mucous membranes Neck Exam: non-tender, supple Cardiovascular/Respiratory Exam: chest non-tender, normal breath sounds, regular rate/rhythm, no respiratory distress Gastrointestinal/Abdominal Exam: non-tender, guarding Back Exam: normal inspection, No vertebral tenderness Hips Exam: bilateral: normal inspection Legs Exam: bilateral leg: normal inspection Knees Exam: bilateral knee: normal inspection Ankle Exam: bilateral ankle: normal inspection Foot Exam: right foot: soft tissue tenderness, swelling, left foot: normal inspection Neuro/Tendon Exam: normal sensation, normal motor functions Mental Status Exam: alert, oriented x 3, cooperative Skin Exam: other (scabs on right foot near site of swelling) SpO2 Interpretation: normal SpO2: 98 Oxygen Delivery: Room Air - Radiology Exams Right Foot X-ray Interpretation: Interpreted by me, Negative, No Fracture Ordered Tests: Active Orders 24 hr Category Date Time Status FOOT (MINIMUM 3 VIEWS) Stat Exams 04/17/18 17:11 Taken BMP Stat Lab 04/17/18 17:19 Completed CBC W DIFF Stat Lab 04/17/18 17:19 Completed Medication Summary Discontinued Medications Generic Name Dose Route Start Last Admin Trade Name Freq PRN Reason Stop Dose Admin Ketorolac Tromethamine 60 mg 04/17/18 17:12 08/15/18 17:28 Toradol 30 Mg Injection IM 04/17/18 17:13 60 mg STAT ONE Administration Ketorolac Tromethamine Confirm 04/17/18 17:26 Toradol 30 Mg Injection Administered 04/17/18 17:27 Dose 60 mg .ROUTE .K-MED ONE Lab/Rad Data: Laboratory Result Diagrams 04/17/18 17:19 04/17/18 17:19 Laboratory Results 04/17/18 04/17/18 Range/Units 17:19 17:19 WBC 5.5 (4.0-10.5) K/mm3 RBC 5.05 (4.1-5.6) M/mm3 Hgb 16.8 (12.5-18.0) gm/dl Hct 48.8 (42-50) % MCV 96.6 (78-100) fl MCH 33.3 H (26-32) pg MCHC 34.4 (32-36) g/dl RDW 13.2 (11.5-14.0) % Plt Count 110 L (150-450) K/mm3 MPV 10.4 H (6-9.5) fl Gran % 46.6 (36.0-66.0) % Eos # (Auto) 0.21 (0-0.5) Absolute Lymphs (auto) 2.13 (1.0-4.6) Absolute Monos (auto) 0.58 (0.0-1.3) Lymphocytes % 38.4 (24.0-44.0) % Monocytes % 10.5 (0.0-12.0) % Eosinophils % 3.8 (0.00-5.0) % Basophils % 0.7 (0.0-0.4) % Absolute Granulocytes 2.58 (1.4-6.9) Basophils # 0.04 (0-0.4) Sodium 140 (137-145) mmol/L Potassium 4.0 (3.5-5.1) mmol/L Chloride 108 H (98-107) mmol/L Carbon Dioxide 27 (22-30) mmol/L Anion Gap 8.5 (5-15) MEQ/L BUN 13 (9-20) mg/dL Creatinine 0.74 (0.66-1.25) mg/dL Estimated GFR > 60.0 ML/MIN Glucose 97 (74-106) mg/dL Calcium 8.5 (8.4-10.2) mg/dL - Progress Progress: unchanged Counseled pt/family regarding: diagnosis, need for follow-up, rad results - Departure Time of Disposition: 18:59 Departure Disposition: Home Clinical Impression: Cellulitis Condition: Stable Critical Care Time: No Referrals: JEANNE CORBETT MD [Primary Care Provider] - Prescriptions: Amoxicillin/Potassium Clav [Augmentin 875-125 Tablet] 875 mg PO BID #20 tablet
[2018-04-17] MEDS ORDERED: TORAdol 30 mg Injection IM ONE (17:12)
[2018-04-17 17:22] LABS: BASOPHIL % 0.7 % (0.0-0.4); Basophil (Absolute #) 0.04 (0-0.4); Eosinophil % 3.8 % (0.00-5.0); Eosinophil (Absolute #) 0.21 (0-0.5); Granulocyte Absolute (ANC) 2.58 (1.4-6.9); Granulocytes % 46.6 % (36.0-66.0); Hematocrit 48.8 % (42-50); Hemoglobin 16.8 gm/dl (12.5-18.0); Lymphocyte (Absolute #) 2.13 (1.0-4.6); Lymphocytes % 38.4 % (24.0-44.0); Mean Cell Volume 96.6 fl (78-100); Mean Corpuscular Hemoglobin 33.3 pg (26-32); Mean Corpuscular Hgb Concent. 34.4 g/dl (32-36); Mean Platelet Volume 10.4 fl (6-9.5); Monocyte (Absolute #) 0.58 (0.0-1.3); Monocytes % 10.5 % (0.0-12.0); Platelet Count 110 K/mm3 (150-450); Red Blood Count 5.05 M/mm3 (4.1-5.6); Red Cell Distribution Width 13.2 % (11.5-14.0); White Blood Count 5.5 K/mm3 (4.0-10.5)
[2018-04-17] MEDS ORDERED: TORAdol 30 mg Injection ONE (17:26)
[2018-04-17 17:42] LABS: ANION GAP 8.5 MEQ/L (5-15); BLOOD UREA NITROGEN 13 mg/dL (9-20); CHLORIDE 108 mmol/L (98-107); Calcium 8.5 mg/dL (8.4-10.2); Carbon Dioxide 27 mmol/L (22-30); Creatinine 1 0.74 mg/dL (0.66-1.25); Glucose 97 mg/dL (74-106); SODIUM 140 mmol/L (137-145)
[2018-04-17] MEDS ORDERED: Rocephin 1000 MG INJ IM ONE (19:00)
[2018-04-17] MEDS ORDERED: Rocephin 1000 MG INJ ONE (19:08)
[2018-04-17] MEDS ORDERED: XYLOCAINE 1% HCL 20 ML MDV ONE (19:09)
[2018-04-17 19:16] VITALS: BP 121/88; PULSE 58; O2SAT 99
--- NOTE | 2018-04-18 08:41 | XRAY ---
Indication: Pain and swelling. Comparison: July 03, 2016. 3 nonweightbearing views of the right foot unchanged again demonstrating small plantar heel spur, posterior talus accessory ossicle, and prominent navicular os tibiale externum. No new/acute findings.
== END 2018-04-17 19:19 | disposition home or self-care (01) ==
LOC: ED 15:52
DX: L03.115 Cellulitis of right lower limb (principal)
CPT/HCPCS: 36415; 73630; 80048; 85025; 96372; 99284; J0696; J1885

== ENCOUNTER 2018-08-01 04:44 | Emergency (ER) | payer OTHER ==
[2018-08-01 05:00] VITALS: O2SAT 98
--- NOTE | 2018-08-01 05:46 | ERPHSYRPT ---
- History of Present Illness Time Seen by Provider: 08/01/18 05:20 Source: patient Exam Limitations: no limitations Patient Subjective Stated Complaint: pt states he has had a headache since 1700 yesterday Triage Nursing Assessment: pt alert and oriented, asnwers questions approp. pt ambulatory with staedy gait noted. respirations nonlabored with lungs cta. pupils equal and reactive. bilat upper and lower ext strength equal and wnl. Physician History: 48 y/o white male presents with frontal sinus headache. he has a h/o infrequent headaches. for past several days pt has experienced sinus/nasal congestion. pts headache began at 1700 last pm and has worsened. denies head injury. Severity: moderate ENT Location: nose, facial (frontal sinuse) Prearrival Treatment: over the counter meds Modifying Factors: Improves With: nothing Associated Symptoms: sinus infection Allergies/Adverse Reactions: No Known Drug Allergies Allergy (Verified 08/01/18 05:02) Hx Tetanus, Diphtheria Vaccination/Date Given: Yes Hx Influenza Vaccination/Date Given: Yes Hx Pneumococcal Vaccination/Date Given: No Immunizations Up to Date: Yes - Review of Systems Constitutional: No Symptoms, No Fever, No Chills Eyes: No Symptoms, Photophobia, No Eye Pain Ears, Nose, & Throat: Nose Congestion, Nose Discharge, Sinus Drainage Respiratory: No Symptoms, No Cough, No Dyspnea, No Stridor, No Wheezing Cardiac: No Symptoms, No Chest Pain, No Edema, No Palpitations, No Syncope Abdominal/Gastrointestinal: No Symptoms, No Abdominal Pain, No Nausea, No Vomiting, No Diarrhea Genitourinary Symptoms: No Symptoms, No Dysuria, No Frequency, No Hematuria Musculoskeletal: No Symptoms Skin: No Symptoms Neurological: Headache (frontal sinuses) Psychological: No Symptoms Endocrine: No Symptoms Hematologic/Lymphatic: No Symptoms Immunological/Allergic: No Symptoms All Other Systems: Reviewed and Negative - Past Medical History Pertinent Past Medical History: Yes Neurological History: No Pertinent History ENT History: No Pertinent History Cardiac History: Deep Vein Thrombosis Respiratory History: No Pertinent History Endocrine Medical History: No Pertinent History Musculoskeletal History: Other GI Medical History: Hepatitis History: No Pertinent History Psycho-Social History: Anxiety, Bipolar, Depression Male Reproductive Disorders: No Pertinent History Other Medical History: HEP C. DVT IN LEFT LEG. CELLULTIES LEFT LEG - Past Surgical History Past Surgical History: Yes Neuro Surgical History: No Pertinent History Cardiac: No Pertinent History Respiratory: No Pertinent History Gastrointestinal: No Pertinent History Genitourinary: No Pertinent History Musculoskeletal: Orthopedic Surgery Male Surgical History: No Pertinent History Other Surgical History: cyst removed. CARPAL TUNNEL IN RIGHT HAND - Social History Smoking Status: Current every day smoker How long have you smoked: 30 years Exposure to second hand smoke: No Alcohol Use: None Drug Use: none Patient Lives Alone: Yes Significant Family History: heart disease - Nursing Vital Signs Nursing Vital Signs: Initial Vital Signs Temperature 98.5 F 08/01/18 04:51 Pulse Rate 80 08/01/18 04:51 Respiratory Rate 18 08/01/18 04:51 Blood Pressure 153/95 08/01/18 04:51 O2 Sat by Pulse Oximetry 98 08/01/18 04:51 Pain Scale Pain Intensity 9 - Physical Exam General Appearance: mild distress, alert, anxiety Eye Exam: bilateral eye: normal inspection, PERRL, EOMI Ear Exam: bilateral ear: auricle normal, canal normal, TM normal Nasal Exam: sinus tenderness Throat Exam: normal, pharynx normal Neck Exam: normal inspection, non-tender, supple, full range of motion, No lymphadenopathy (R), No lymphadenopathy (L) Cardiovascular/Respiratory Exam: chest non-tender, normal breath sounds, regular rate/rhythm, heart sounds normal, no ecchymosis, no JVD, no respiratory distress Abdominal Exam: non-tender, soft Neurologic Exam: alert, oriented x 3, 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, 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 Skin Exam: normal color, warm, dry SpO2 Interpretation: normal, borderline oxygenation, hypoxic SpO2: 98 Oxygen Delivery: Room Air - Course Nursing assessment & vital signs reviewed: Yes Ordered Tests: Medication Summary Discontinued Medications Generic Name Dose Route Start Last Admin Trade Name Freq PRN Reason Stop Dose Admin Ciprofloxacin 500 mg 08/01/18 05:53 Cipro 500 Mg PO 08/01/18 05:54 STAT ONE Hydromorphone HCl 1 mg 08/01/18 05:53 Hydromorphone 1 Mg/Ml Ampule IM 08/01/18 05:54 STAT ONE Methylprednisolone Sodium Succinate 125 mg 08/01/18 05:51 Solu-Medrol 125 Mg IM 08/01/18 05:52 STAT ONE Ondansetron HCl 4 mg 08/01/18 05:53 Zofran Odt 4 Mg PO 08/01/18 05:54 STAT ONE - Progress Progress: improved, re-examined Counseled pt/family regarding: diagnosis, need for follow-up - Departure Time of Disposition: 06:05 Departure Disposition: Home Clinical Impression: Sinusitis Condition: Stable Critical Care Time: No Referrals: JEANNE CORBETT MD [Primary Care Provider] - Additional Instructions: follow up with primary doctor for further management Prescriptions: Hydrocodone/APAP 5/325 [[place] 5/325 mg] 1 each PO Q8H PRN PRN #6 tablet MDD 3 PRN Reason: Pain Ciprofloxacin [Cipro 500 MG] 500 mg PO BID #14 tablet Prednisone 10 mg [Deltasone 10 mg] 10 mg PO TID #12 tablet
[2018-08-01] MEDS ORDERED: solu-MEDROL 125 MG IM ONE (05:51)
[2018-08-01] MEDS ORDERED: Hydromorphone 1 mg/ml Ampule IM ONE (05:53)
[2018-08-01] MEDS ORDERED: Cipro 500 MG PO ONE (05:53)
[2018-08-01] MEDS ORDERED: ZOFRAN ODT 4 MG PO ONE (05:53)
[2018-08-01] MEDS ORDERED: Hydromorphone 1 mg/ml Ampule ONE (06:05)
[2018-08-01] MEDS ORDERED: solu-MEDROL 125 MG ONE (06:05)
[2018-08-01] MEDS ORDERED: Cipro 500 MG ONE (06:05)
[2018-08-01] MEDS ORDERED: ZOFRAN ODT 4 MG ONE (06:05)
[2018-08-01 06:24] VITALS: BP 135/86; PULSE 81
== END 2018-08-01 06:30 | disposition home or self-care (01) ==
LOC: ED 04:44
DX: J32.9 Chronic sinusitis, unspecified (principal); R51 Headache
CPT/HCPCS: 96372; 99284; J1170; J2930; Q0162; A9270-GY

== ENCOUNTER 2018-12-05 17:59 | Emergency (ER) | payer MEDICAID, OTHER ==
[2018-12-05] MEDS ORDERED: TORAdol 30 mg Injection IV ONE (18:39)
[2018-12-05] MEDS ORDERED: Sodium Chloride 0.9% 1000 ML 1,000 ML IV STA (18:39)
[2018-12-05] MEDS ORDERED: Zofran 4 MG/2 ML VIAL IV ONE (18:39)
[2018-12-05] MEDS ORDERED: Pepcid 20 MG VIAL IV ONE ×2 (18:39→19:45)
--- NOTE | 2018-12-05 18:48 | ERPHSYRPT ---
- History of Present Illness Time Seen by Provider: 12/05/18 18:31 Historian: patient Exam Limitations: no limitations Patient Subjective Stated Complaint: pt here for right sided back pain for 3 days, with loose stools, having one stool an hour, no nausea Triage Nursing Assessment: pt alert, resp easy, skin w/d/p. abd soft ,nontender , no edema noted Physician History: C/o diarrhea for about one week, developed RUQ pain, radiating to his right flank 3 days ago, no nausea, vomiting, fever, chills, urinary complaints, no bloody or black stools, other complaints. He denies taking recent antibiotics. Timing/Duration: week(s) (1) Activities at Onset: none Quality: cramping, sharpness Abdominal Pain Onset Location: RUQ Pain Radiation: flank (right) Severity of Pain-Max: severe Severity of Pain-Current: severe Modifying Factors: Improves With: nothing Associated Symptoms: diarrhea Previous symptoms: no prior history Allergies/Adverse Reactions: No Known Drug Allergies Allergy (Verified 12/05/18 18:19) Home Medications: No Reportable Medications [No Reported Medications] 12/05/18 [History] Hx Tetanus, Diphtheria Vaccination/Date Given: No Hx Influenza Vaccination/Date Given: No Hx Pneumococcal Vaccination/Date Given: No Immunizations Up to Date: Yes - Review of Systems Constitutional: No Symptoms Ears, Nose, & Throat: No Symptoms Respiratory: No Symptoms Cardiac: No Symptoms Abdominal/Gastrointestinal: Abdominal Pain, Diarrhea Genitourinary Symptoms: No Symptoms Musculoskeletal: No Symptoms Skin: No Symptoms Neurological: No Symptoms All Other Systems: Reviewed and Negative - Past Medical History Pertinent Past Medical History: Yes Neurological History: No Pertinent History ENT History: No Pertinent History Cardiac History: Deep Vein Thrombosis Respiratory History: No Pertinent History Endocrine Medical History: No Pertinent History Musculoskeletal History: Other GI Medical History: Hepatitis History: No Pertinent History Psycho-Social History: Anxiety, Bipolar, Depression Male Reproductive Disorders: No Pertinent History Other Medical History: HEP C. DVT IN LEFT LEG. CELLULTIES LEFT LEG - Past Surgical History Past Surgical History: Yes Neuro Surgical History: No Pertinent History Cardiac: No Pertinent History Respiratory: No Pertinent History Gastrointestinal: No Pertinent History Genitourinary: No Pertinent History Musculoskeletal: Orthopedic Surgery Male Surgical History: No Pertinent History Other Surgical History: cyst removed,ankle surgery. CARPAL TUNNEL IN RIGHT HAND - Social History Smoking Status: Current every day smoker How long have you smoked: 30 years Exposure to second hand smoke: Yes Alcohol Use: None Drug Use: none Patient Lives Alone: No Significant Family History: heart disease - Nursing Vital Signs Nursing Vital Signs: Initial Vital Signs Temperature 99.7 F 12/05/18 18:15 Pulse Rate 92 H 12/05/18 18:15 Respiratory Rate 22 12/05/18 18:15 Blood Pressure 154/98 12/05/18 18:15 O2 Sat by Pulse Oximetry 100 12/05/18 18:15 Pain Scale Pain Intensity 2 - Physical Exam General Appearance: no apparent distress Eye Exam: eyes nml inspection Ears, Nose, Throat Exam: normal ENT inspection, pharynx normal Neck Exam: normal inspection, non-tender, supple, No JVD Respiratory Exam: normal breath sounds, lungs clear, airway intact Cardiovascular Exam: regular rate/rhythm, normal heart sounds, normal peripheral pulses, No murmur Gastrointestinal/Abdomen Exam: soft, normal bowel sounds, tenderness (RUQ, mod. severe), No distention, No mass, No guarding, No ecchymosis, No pulsatile mass, No rebound, No organomegaly Extremity Exam: normal inspection Neurologic Exam: alert, oriented x 3, cooperative, normal mood/affect Skin Exam: normal color, warm, dry, No rash Lymphatic Exam: No adenopathy SpO2 Interpretation: normal SpO2: 100 O2 Delivery: Room Air - Course Nursing assessment & vital signs reviewed: Yes - CT Exams Abdomen/Pelvis CT Interpretation: Tele-radiologist Report, Other (mild duodenal and jejunal wall thickening, stranding, markedly distended gallbladder without stones.) Ordered Tests: Active Orders 24 hr Category Date Time Status IV Insertion STAT Care 12/05/18 18:39 Active Orthostatic Vital Signs STAT Care 12/05/18 20:22 Active ABDOMEN AND PELVIS W/0 CONTRAS [CT] Stat Exams 12/05/18 18:39 Taken AMYLASE Stat Lab 12/05/18 20:38 Completed BLOOD CULTURE Stat Lab 12/05/18 22:54 Ordered CBC W DIFF Stat Lab 12/05/18 20:38 Completed CMP Stat Lab 12/05/18 20:38 Completed LIPASE Stat Lab 12/05/18 20:38 Completed Lactic Acid Stat Lab 12/05/18 20:45 Completed Manual Differential NC Stat Lab 12/05/18 20:38 Completed Occult Blood, Other Screening Stat Lab 12/05/18 19:30 Completed PROTIME WITH INR Stat Lab 12/05/18 20:38 Completed PTT Stat Lab 12/05/18 20:38 Completed UA W/RFX UR CULTURE Stat Lab 12/05/18 18:39 Completed Urine Triage Profile Stat Lab 12/05/18 18:39 Completed Medication Summary Generic Name Dose Route Start Last Admin Trade Name Freq PRN Reason Stop Dose Admin Piperacillin Sod/Tazobactam Sod 3.375 gm in 100 mls @ 200 mls/hr 12/05/18 22: 52 Zosyn 3.375gm/100 Ml D5w IV 12/05/18 23:21 STAT STA Discontinued Medications Generic Name Dose Route Start Last Admin Trade Name Freq PRN Reason Stop Dose Admin Famotidine 20 mg 12/05/18 18:39 12/05/18 20:10 Pepcid 20 Mg Vial IV 12/05/18 18:40 20 mg STAT ONE Administration Famotidine Confirm 12/05/18 19:45 Pepcid 20 Mg Vial Administered 12/05/18 19:46 Dose 20 mg IV .STK-MED ONE Sodium Chloride 1,000 mls @ 999 mls/hr 12/05/18 18:39 12/05/18 20:08 Sodium Chloride 0.9% 1000 Ml IV 12/05/18 19:39 999 mls/hr .Q1H1M STA Administration Sodium Chloride Confirm 12/05/18 19:45 Sodium Chloride 0.9% 1000 Ml Administered 12/05/18 19:46 Dose 1,000 mls @ ud .ROUTE .STK-MED ONE Ketorolac Tromethamine 30 mg 12/05/18 18:39 12/05/18 20:11 Toradol 30 Mg Injection IV 12/05/18 18:40 30 mg STAT ONE Administration Ketorolac Tromethamine Confirm 12/05/18 19:45 Toradol 30 Mg Injection Administered 12/05/18 19:46 Dose 30 mg .ROUTE .STK-MED ONE Ondansetron HCl 4 mg 12/05/18 18:39 12/05/18 20:09 Zofran 4 Mg/2 Ml Vial IV 12/05/18 18:40 4 mg STAT ONE Administration Ondansetron HCl Confirm 12/05/18 19:45 Zofran 4 Mg/2 Ml Vial Administered 12/05/18 19:46 Dose 4 mg .ROUTE .STK-MED ONE Pantoprazole Sodium 40 mg 12/05/18 20:21 12/05/18 20:33 Protonix 40 Mg Iv IV 12/05/18 20:22 40 mg STAT ONE Administration Pantoprazole Sodium Confirm 12/05/18 20:31 Protonix 40 Mg Iv Administered 12/05/18 20:32 Dose 40 mg IV .STK-MED ONE Lab/Rad Data: Laboratory Result Diagrams 12/05/18 20:38 12/05/18 20:38 Laboratory Results 12/05/18 12/05/18 12/05/18 Range/Units 20:45 20:38 20:38 WBC (4.0-10.5) K/mm3 RBC (4.1-5.6) M/mm3 Hgb (12.5-18.0) gm/dl Hct (42-50) % MCV (78-100) fl MCH (26-32) pg MCHC (32-36) g/dl RDW (11.5-14.0) % Plt Count (150-450) K/mm3 MPV (6-9.5) fl PT 26.8 H (8.83-12.87) SECONDS INR 2.29 (0.8-3.0) APTT 37.1 H (24.1-36.1) SECONDS Sodium (137-145) mmol/L Potassium (3.5-5.1) mmol/L Chloride (98-107) mmol/L Carbon Dioxide (22-30) mmol/L Anion Gap (5-15) MEQ/L BUN (9-20) mg/dL Creatinine (0.66-1.25) mg/dL Estimated GFR ML/MIN Glucose (74-106) mg/dL Lactic Acid 1.4 (0.4-2.0) Calcium (8.4-10.2) mg/dL Total Bilirubin (0.2-1.3) mg/dL AST (17-59) U/L ALT (0-50) U/L Alkaline Phosphatase (38-126) U/L Serum Total Protein (6.3-8.2) g/dL Albumin (3.5-5.0) g/dL Amylase 54 (30-110) U/L Lipase (23-300) U/L Urine Color (YELLOW) Urine Appearance (CLEAR) Urine pH (5-6) Ur Specific [place] (1.005-1.025) Urine Protein (Negative) Urine Ketones (NEGATIVE) Urine Blood (0-5) Darryn/ul Urine Nitrite (NEGATIVE) Urine Bilirubin (NEGATIVE) Urine Urobilinogen (0-1) mg/dL Ur Leukocyte Esterase (NEGATIVE) Urine WBC (Auto) (0-5) /HPF Urine RBC (Auto) (0-2) /HPF U Epithel Cells (Auto) (FEW) /HPF Urine Bacteria (Auto) (NEGATIVE) /HPF Urine Mucus (Auto) (NEGATIVE) /HPF Urine Culture Reflexed (NO) Urine Glucose (NEGATIVE) mg/dL Stool Occult Blood (Negative) Urine Opiates Level (NEGATIVE) Ur Methadone (NEGATIVE) Urine Barbiturates (NEGATIVE) Ur Phencyclidine (PCP) (NEGATIVE) Urine Amphetamine (NEGATIVE) U Benzodiazepine Level (NEGATIVE) Urine Cocaine (NEGATIVE) Urine Marijuana (THC) (NEGATIVE) 12/05/18 12/05/18 12/05/18 Range/Units 20:38 20:38 19:30 WBC 3.8 L (4.0-10.5) K/mm3 RBC 4.53 (4.1-5.6) M/mm3 Hgb 14.7 (12.5-18.0) gm/dl Hct 43.0 (42-50) % MCV 94.9 (78-100) fl MCH 32.5 H (26-32) pg MCHC 34.2 (32-36) g/dl RDW 14.1 H (11.5-14.0) % Plt Count 79 L (150-450) K/mm3 MPV 11.4 H (6-9.5) fl PT (8.83-12.87) SECONDS INR (0.8-3.0) APTT (24.1-36.1) SECONDS Sodium 135 L (137-145) mmol/L Potassium 4.2 (3.5-5.1) mmol/L Chloride 110 H (98-107) mmol/L Carbon Dioxide 21 L (22-30) mmol/L Anion Gap 8.7 (5-15) MEQ/L BUN 17 (9-20) mg/dL Creatinine 0.74 (0.66-1.25) mg/dL Estimated GFR > 60.0 ML/MIN Glucose 97 (74-106) mg/dL Lactic Acid (0.4-2.0) Calcium 7.7 L (8.4-10.2) mg/dL Total Bilirubin 6.50 H (0.2-1.3) mg/dL AST 3364 H (17-59) U/L ALT 2573 H (0-50) U/L Alkaline Phosphatase 194 H (38-126) U/L Serum Total Protein 6.9 (6.3-8.2) g/dL Albumin 2.6 L (3.5-5.0) g/dL Amylase (30-110) U/L Lipase 61 (23-300) U/L Urine Color (YELLOW) Urine Appearance (CLEAR) Urine pH (5-6) Ur Specific [place] (1.005-1.025) Urine Protein (Negative) Urine Ketones (NEGATIVE) Urine Blood (0-5) Darryn/ul Urine Nitrite (NEGATIVE) Urine Bilirubin (NEGATIVE) Urine Urobilinogen (0-1) mg/dL Ur Leukocyte Esterase (NEGATIVE) Urine WBC (Auto) (0-5) /HPF Urine RBC (Auto) (0-2) /HPF U Epithel Cells (Auto) (FEW) /HPF Urine Bacteria (Auto) (NEGATIVE) /HPF Urine Mucus (Auto) (NEGATIVE) /HPF Urine Culture Reflexed (NO) Urine Glucose (NEGATIVE) mg/dL Stool Occult Blood POSITIVE A (Negative) Urine Opiates Level (NEGATIVE) Ur Methadone (NEGATIVE) Urine Barbiturates (NEGATIVE) Ur Phencyclidine (PCP) (NEGATIVE) Urine Amphetamine (NEGATIVE) U Benzodiazepine Level (NEGATIVE) Urine Cocaine (NEGATIVE) Urine Marijuana (THC) (NEGATIVE) 12/05/18 12/05/18 Range/Units 18:39 18:39 WBC (4.0-10.5) K/mm3 RBC (4.1-5.6) M/mm3 Hgb (12.5-18.0) gm/dl Hct (42-50) % MCV (78-100) fl MCH (26-32) pg MCHC (32-36) g/dl RDW (11.5-14.0) % Plt Count (150-450) K/mm3 MPV (6-9.5) fl PT (8.83-12.87) SECONDS INR (0.8-3.0) APTT (24.1-36.1) SECONDS Sodium (137-145) mmol/L Potassium (3.5-5.1) mmol/L Chloride (98-107) mmol/L Carbon Dioxide (22-30) mmol/L Anion Gap (5-15) MEQ/L BUN (9-20) mg/dL Creatinine (0.66-1.25) mg/dL Estimated GFR ML/MIN Glucose (74-106) mg/dL Lactic Acid (0.4-2.0) Calcium (8.4-10.2) mg/dL Total Bilirubin (0.2-1.3) mg/dL AST (17-59) U/L ALT (0-50) U/L Alkaline Phosphatase (38-126) U/L Serum Total Protein (6.3-8.2) g/dL Albumin (3.5-5.0) g/dL Amylase (30-110) U/L Lipase (23-300) U/L Urine Color SKYL[place] (YELLOW) Urine Appearance CLEAR (CLEAR) Urine pH 6.0 (5-6) Ur Specific [place] 1.019 (1.005-1.025) Urine Protein NEGATIVE (Negative) Urine Ketones NEGATIVE (NEGATIVE) Urine Blood NEGATIVE (0-5) Darryn/ul Urine Nitrite NEGATIVE (NEGATIVE) Urine Bilirubin MODERATE (NEGATIVE) Urine Urobilinogen 4 (0-1) mg/dL Ur Leukocyte Esterase NEGATIVE (NEGATIVE) Urine WBC (Auto) NONE (0-5) /HPF Urine RBC (Auto) NONE (0-2) /HPF U Epithel Cells (Auto) NONE (FEW) /HPF Urine Bacteria (Auto) NONE (NEGATIVE) /HPF Urine Mucus (Auto) SLIGHT (NEGATIVE) /HPF Urine Culture Reflexed NO (NO) Urine Glucose NEGATIVE (NEGATIVE) mg/dL Stool Occult Blood (Negative) Urine Opiates Level NEGATIVE (NEGATIVE) Ur Methadone NEGATIVE (NEGATIVE) Urine Barbiturates NEGATIVE (NEGATIVE) Ur Phencyclidine (PCP) NEGATIVE (NEGATIVE) Urine Amphetamine NEGATIVE (NEGATIVE) U Benzodiazepine Level NEGATIVE (NEGATIVE) Urine Cocaine NEGATIVE (NEGATIVE) Urine Marijuana (THC) NEGATIVE (NEGATIVE) - Progress Progress: improved Progress Note: 12/05/18 23:04 Pt was started on iv saline, Protonix, and Zosyn after blood cultures, we called Dr Corbett, discussed this case in details, he recommended to transfer him to [facility] in [facility]. We called Dr Winkler in ED also Dr Truong , surgeon telecommunications cable jointer, and the Hospitalist, Dr Ozuna, discussed our findings and his current condition, Dr Winkler agreed to transfer him there for further evaluation and care. patient was informed about this and agreed, he understands all benefits and risks of this transfer, he has been stable for the transport. Discussed with : Jamaal Will see patient in: other (recommends transfer to [facility]) Counseled pt/family regarding: lab results, diagnosis, rad results - Departure Departure Disposition: Transfer (to [facility] ED, accepting Dr Winkler) Clinical Impression: Gastrointestinal bleeding, upper, Jaundice, Cholecystitis Condition: Stable Critical Care Time: No Referrals: JEANNE CORBETT MD [Primary Care Provider] -
[2018-12-05] MEDS ORDERED: Sodium Chloride 0.9% 1000 ML 1,000 ML ONE (19:45)
[2018-12-05] MEDS ORDERED: TORAdol 30 mg Injection ONE (19:45)
[2018-12-05] MEDS ORDERED: Zofran 4 MG/2 ML VIAL ONE (19:45)
[2018-12-05] MEDS ORDERED: PROTONIX 40 MG IV IV ONE ×2 (20:21→20:31)
[2018-12-05 20:40] LABS: Hemoglobin 14.7 gm/dl (12.5-18.0); Mean Cell Volume 94.9 fl (78-100); Mean Corpuscular Hemoglobin 32.5 pg (26-32); Mean Corpuscular Hgb Concent. 34.2 g/dl (32-36); Mean Platelet Volume 11.4 fl (6-9.5); Platelet Count 79 K/mm3 (150-450); Red Blood Count 4.53 M/mm3 (4.1-5.6); Red Cell Distribution Width 14.1 % (11.5-14.0); White Blood Count 3.8 K/mm3 (4.0-10.5)
[2018-12-05 20:52] LABS: ALBUMIN 2.6 g/dL (3.5-5.0); ALKALINE PHOSPHATASE 194 U/L (38-126); ANION GAP 8.7 MEQ/L (5-15); BLOOD UREA NITROGEN 17 mg/dL (9-20); CHLORIDE 110 mmol/L (98-107); Calcium 7.7 mg/dL (8.4-10.2); Carbon Dioxide 21 mmol/L (22-30); Creatinine 1 0.74 mg/dL (0.66-1.25); Glucose 97 mg/dL (74-106); LIPASE 61 U/L (23-300); Potassium 4.2 mmol/L (3.5-5.1); SODIUM 135 mmol/L (137-145); Total Protein 6.9 g/dL (6.3-8.2)
[2018-12-05 20:54] LABS: Appearance CLEAR (CLEAR); Bilirubin MODERATE (NEGATIVE); Blood NEGATIVE Ery/ul (0-5); Glucose NEGATIVE (NEGATIVE); Ketones NEGATIVE (NEGATIVE); Leukocyte Esterase NEGATIVE (NEGATIVE); Mucus SLIGHT /HPF (NEGATIVE); Nitrite NEGATIVE (NEGATIVE); Protein,Urine Dip NEGATIVE (Negative); Specific Gravity 1.019 (1.005-1.025); Urobilinogen 4 mg/dL (0-1)
[2018-12-05 21:08] LABS: Amphetamine,Urine NEGATIVE (NEGATIVE); Barbiturate,Urine NEGATIVE (NEGATIVE); Benzodiazepine,Urine NEGATIVE (NEGATIVE); Cocaine,Urine NEGATIVE (NEGATIVE); Methadone,Urine NEGATIVE (NEGATIVE); Opiate,Urine NEGATIVE (NEGATIVE); PCP,Urine NEGATIVE (NEGATIVE); THC,Urine NEGATIVE (NEGATIVE)
[2018-12-05 21:36] LABS: SGOT/AST 3364 U/L (17-59); SGPT/ALT 2573 U/L (0-50)
[2018-12-05 21:50] LABS: INR 2.29 (0.8-3.0); PROTIME 26.8 SECONDS (8.83-12.87)
[2018-12-05 21:53] LABS: PTT 37.1 SECONDS (24.1-36.1)
[2018-12-05] MEDS ORDERED: Zosyn 3.375GM/100 Ml D5W 3.375 GM/100 ML IVPB IV STA (22:52)
[2018-12-05] MEDS ORDERED: Zosyn 3.375GM/100 Ml D5W 3.375 GM/100 ML IVPB IV ONE (23:30)
[2018-12-05 23:46] LABS: ATYPICAL LYMPHS 3 %; BAND 3 % (0.0-2.0); Eosinophil 2 % (0.00-3.0); Lymphocytes 18 % (24-44); Monocyte 11 % (0.0-12.0); Neutrophils 63 % (36.-66.); Platelet Estimate DECREASED (NORMAL); Total Cells Counted 100
[2018-12-05 23:47] LABS: ANISOCYTOSIS 2+; Poikilocytosis 2+
[2018-12-06 00:10] VITALS: BP 109/65; PULSE 75; O2SAT 96
--- NOTE | 2018-12-06 09:20 | XRAY ---
Indication: Right upper quadrant abdomen pain. Diarrhea. Multiple contiguous axial images obtained through the abdomen and pelvis without contrast as ordered. Comparison: None Lung bases demonstrates bibasilar atelectasis/scarring and a few tiny calcified granulomas. No infiltrate or effusion. Heart is not enlarged. Stomach is distended with fluid/fluid. Duodenum and jejunal bowel loops demonstrates mild circumferential wall thickening with stranding favoring enteritis. Normal appendix. Gallbladder is markedly distended without gallstones or biliary distention. No free fluid/air. Liver demonstrates micro-lobular margins favoring cirrhosis. 2 cm oval right lobe hepatic hypodense lesion, possible cyst. Spleen is enlarged measuring 15.2 cm in greatest axial dimension with tiny calcified granuloma. Nonobstructing right renal micro-calculus. Left mid kidney demonstrates 3 cm cortical cyst. Remaining pancreas, adrenal glands, kidneys, ureters, and bladder appear unremarkable for noncontrast exam. Minimal aortoiliac calcifications without AAA. Osseous structures demonstrates mild degenerative spondylosis throughout the spine. No ventral or inguinal hernias. Impression: 1. Duodenal and jejunal bowel wall thickening with stranding favoring enteritis. 2. Cirrhotic liver with probable 2 cm cyst. No ascites. 3. Abnormally distended gallbladder without gallstones. Sonogram may yield further information. 4. Nonobstructing right renal micro-calculus, left renal cyst, splenomegaly, and evidence for old granulomatous disease. CT DI 23.37
[2018-12-10 13:06] LABS: HEPATITIS B VIRUS CORE TOT AB Reactive (Non Reactive); HEPATITIS C VIRUS ANTIBODY Weak Reactive (Non Reactive); Hepatitis B Surface Antigen Reac-confirmed (Non Reactive)
== END 2018-12-06 00:12 | disposition short-term general hospital (02) ==
LOC: ED 17:59
DX: K92.2 Gastrointestinal hemorrhage, unspecified (principal); R17 Unspecified jaundice; K81.9 Cholecystitis, unspecified; Z86.718 Personal history of other venous thrombosis and embolism; F41.9 Anxiety disorder, unspecified; F31.9 Bipolar disorder, unspecified; K75.9 Inflammatory liver disease, unspecified
CPT/HCPCS: 36000; 36415; 74176; 80053; 80074; 80307; 81001; 82150; 82272; 83605; 83690; 85025; 85610; 85730; 87040; 96360; 96365; 96374; 96375; 99285; J1885; J2405; J2543

== ENCOUNTER 2022-01-06 15:01 | Emergency (ER) | payer MEDICARE, OTHER ==
--- NOTE | 2022-01-06 15:04 | ERPHSYRPT ---
- History of Present Illness Time Seen by Provider: 01/06/22 15:04 Source: patient Exam Limitations: no limitations Physician History: This is a 51-year-old white male patient of Dr. Corbett who presents with mild blistering and burning sensation in the fingertips of both hands. 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 Patient noticed blistering and pain in his fingers and then went home and rinsed off his hands with soap. He removed most of his range except for the one in the right thumb. Because of the blistering and the burning pain sensation he is experiencing he came to emergency room for evaluation. Timing/Duration: today, worse Quality: burning (To moderate), painful Severity: mild Location: hands (Bilateral hands and fingers) Possible Causes: other (Bleach and easy off chemical) Modifying Factors: Improves With: other (Cleaning his hands with soapy water) Associated Symptoms: blisters, tingling (Burning tingling sensation bilateral hands multiple digits) Allergies/Adverse Reactions: No Known Drug Allergies Allergy (Verified 01/06/22 15:11) Hx Tetanus, Diphtheria Vaccination/Date Given: No Hx Influenza Vaccination/Date Given: No Hx Pneumococcal Vaccination/Date Given: No Travel Risk - International Travel Have you traveled outside of the country in past 3 weeks: No - Coronavirus Screening Are you exhibiting any of the following symptoms?: No Close contact with a COVID-19 positive Pt in past 14-21 Days: No - Review of Systems Constitutional: No Symptoms Eyes: No Symptoms Ears, Nose, & Throat: No Symptoms Respiratory: No Symptoms Cardiac: No Symptoms Abdominal/Gastrointestinal: No Symptoms Genitourinary Symptoms: No Symptoms Musculoskeletal: No Symptoms Skin: Other (Spotty blistering and redness with burning and tingling sensation multiple digits of both hands.) Neurological: No Symptoms Psychological: No Symptoms Endocrine: No Symptoms Hematologic/Lymphatic: No Symptoms Immunological/Allergic: No Symptoms All Other Systems: Reviewed and Negative - Past Medical History Pertinent Past Medical History: Yes Neurological History: No Pertinent History ENT History: No Pertinent History Cardiac History: Deep Vein Thrombosis Respiratory History: No Pertinent History Endocrine Medical History: No Pertinent History Musculoskeletal History: Other GI Medical History: Hepatitis History: No Pertinent History Psycho-Social History: Anxiety, Bipolar, Depression Male Reproductive Disorders: No Pertinent History Other Medical History: HEP C. DVT IN LEFT LEG. CELLULTIES LEFT LEG - Past Surgical History Past Surgical History: Yes Neuro Surgical History: No Pertinent History Cardiac: No Pertinent History Respiratory: No Pertinent History Gastrointestinal: No Pertinent History Genitourinary: No Pertinent History Musculoskeletal: Orthopedic Surgery Male Surgical History: No Pertinent History Other Surgical History: cyst removed,ankle surgery. CARPAL TUNNEL IN RIGHT HAND - Social History Smoking Status: Current every day smoker How long have you smoked: 30 years Exposure to second hand smoke: Yes Alcohol Use: None Drug Use: none Patient Lives Alone: No Significant Family History: heart disease - Nursing Vital Signs Nursing Vital Signs: Initial Vital Signs Temperature 97.5 F 01/06/22 15:07 Pulse Rate 118 H 01/06/22 15:07 Respiratory Rate 18 01/06/22 15:07 Blood Pressure 147/108 01/06/22 15:07 O2 Sat by Pulse Oximetry 95 01/06/22 15:07 Pain Scale Pain Intensity 7 - Physical Exam General Appearance: no apparent distress, alert, anxiety, obese Eye Exam: PERRL/EOMI, eyes nml inspection Ears, Nose, Throat Exam: normal ENT inspection, moist mucous membranes Neck Exam: normal inspection, non-tender, supple, full range of motion Respiratory Exam: airway intact, No chest tenderness, No respiratory distress Gastrointestinal/Abdomen Exam: No tenderness Rectal Exam: not done Back Exam: normal inspection, normal range of motion, No CVA tenderness, No vertebral tenderness Extremity Exam: normal inspection, normal range of motion, No pelvis stable Neurologic Exam: alert, oriented x 3, cooperative, 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 There is palpable radial pulses bilaterally.) Lymphatic Exam: No adenopathy SpO2 Interpretation: normal O2 Delivery: Room Air Ordered Tests: Medication Summary Generic Name Dose Route Start Last Admin Trade Name Freq PRN Reason Stop Dose Admin Bacitracin Zinc 1 gm 01/06/22 22:00 01/06/22 16:20 Bacitracin Zinc 28 Gm Tube TP 02/05/22 21:59 1 gm BID RAYMON Administration Discontinued Medications Generic Name Dose Route Start Last Admin Trade Name Freq PRN Reason Stop Dose Admin Cephalexin HCl 500 mg 01/06/22 16:09 01/06/22 16:20 Cephalexin Mh500 Mg Capsule PO 01/06/22 16:10 500 mg STAT ONE Administration Cephalexin HCl Confirm 01/06/22 16:16 Cephalexin Mh500 Mg Capsule Administered 01/06/22 16:17 Dose 500 mg .ROUTE .STK-MED ONE Prednisone 20 mg 01/06/22 16:08 01/06/22 16:20 Prednisone 20 Mg Tablet PO 01/06/22 16:09 20 mg STAT ONE Administration Prednisone Confirm 01/06/22 16:16 Prednisone 20 Mg Tablet Administered 01/06/22 16:17 Dose 20 mg .ROUTE .STK-MED ONE - Progress Progress: improved, pain not gone completely Counseled pt/family regarding: diagnosis, need for follow-up - Departure Departure Disposition: Home Clinical Impression: Chemical burn Condition: Stable Critical Care Time: No Referrals: JEANNE CORBETT MD [Primary Care Provider] - Follow up/PCP as directed Additional Instructions: Soak both hands and all digits in cool plain water 3-4 times a day over the next 48 hours. At least twice a day, blow dry or blot dry the hands and digits then apply a thin layer of antibiotic ointment of choice to the blistered sites. Take your medication as prescribed. Return to the emergency department in 24 hours for reevaluation. If symptoms are worse return to the emergency department sooner. Take off all your rings and keep off until the swelling and blistering have subsided. Prescriptions: Prednisone 5 mg [Deltasone 5 mg] 5 mg PO TID #12 tablet Cephalexin Mh 500 mg [Keflex 500 mg] 500 mg PO TID #21 cap
[2022-01-06] MEDS ORDERED: DELTASONE 20 MG PO ONE (16:08)
[2022-01-06] MEDS ORDERED: KEFLEX 500 MG PO ONE (16:09)
[2022-01-06] MEDS ORDERED: KEFLEX 500 MG ONE (16:16)
[2022-01-06] MEDS ORDERED: DELTASONE 20 MG ONE (16:16)
[2022-01-06 16:51] VITALS: BP 127/98; PULSE 103; O2SAT 96
[2022-01-06] MEDS ORDERED: BACIGUENT 30 GM TP SCH (22:00)
== END 2022-01-06 16:51 | disposition home or self-care (01) ==
LOC: ED 15:01
DX: T54.91XA Toxic effect of unspecified corrosive substance, accidental (unintentional), initial encounter (principal); T23.602A Corrosion of second degree of left hand, unspecified site, initial encounter; T23.601A Corrosion of second degree of right hand, unspecified site, initial encounter; Y93.E9 Activity, other interior property and clothing maintenance; Y92.000 Kitchen of unspecified non-institutional (private) residence as the place of occurrence of the external cause; M79.641 Pain in right hand; M79.642 Pain in left hand; Z72.0 Tobacco use; Z79.52 Long term (current) use of systemic steroids
CPT/HCPCS: 99283; A9270-GY

== ENCOUNTER 2022-02-14 19:19 | Emergency (ER) | payer MEDICARE, OTHER ==
[2022-02-14] MEDS ORDERED: DUONEB 0.5-3 MG/3 ml Neb IH ONE ×2 (19:35→19:49)
[2022-02-14] MEDS ORDERED: solu-MEDROL 125 MG, Sterile H2O 10 ml 2 ML IV ONE ×2 (19:35)
--- NOTE | 2022-02-14 19:40 | ERPHSYRPT ---
- History of Present Illness Time Seen by Provider: 02/14/22 19:35 Source: patient Exam Limitations: no limitations Patient Subjective Stated Complaint: sob off and on since last night Triage Nursing Assessment: pt c/o sob, started last night when trying to sleep. Things improved, but when showering today, lifting his hands over his head to wash his hair, became sob again and thought he needed to be seen. Lungs clear, no distress noted. Patient denies pain. Physician History: Patient is a 51-year-old male presents to emergency department for evaluation of shortness of breath. Shortness of breath started last night while he was sleeping. Shortness of breath improved however today while patient was showering he raises arms above his head and thought shortness of breath again. No facial swelling. Patient describes chest pain just deep to the sternum. Patient took 3 baby aspirin at approximately 1230 followed by 4 ibuprofen. Patient has a history of COPD. He is still an active smoker. No history of PE DVT. No lower extremity swelling. No calf pain. Symptoms are mild to moderate in intensity. Activity worsens symptoms. Symptoms improved with rest. Patient voices no other complaints or concerns at this time. Timing/Duration: yesterday Activities at Onset: none Severity of Dyspnea-Max: moderate Severity of Dyspnea-Current: mild Possible Cause: no prior episodes Modifying Factors: Improves With: activity Associated Symptoms: denies symptoms Allergies/Adverse Reactions: No Known Drug Allergies Allergy (Verified 02/14/22 19:34) Home Medications: Nicotine 14 mg [Nicoderm Cq 14 mg] 1 patch TOP DAILY 02/14/22 [History] PARoxetine HCl [Paxil] 10 mg PO DAILY 02/14/22 [History] Hx Tetanus, Diphtheria Vaccination/Date Given: Yes Hx Influenza Vaccination/Date Given: Yes Hx Pneumococcal Vaccination/Date Given: No Immunizations Up to Date: Yes Travel Risk - International Travel Have you traveled outside of the country in past 3 weeks: No - Coronavirus Screening Are you exhibiting any of the following symptoms?: Yes Symptoms: Shortness of Breath Close contact with a COVID-19 positive Pt in past 14-21 Days: No - Vaccine Status Have you recieved a Covid-19 vaccination: Yes 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 - Review of Systems Constitutional: No Symptoms, No Fever, No Chills Eyes: No Symptoms Ears, Nose, & Throat: No Symptoms Respiratory: No Symptoms, No Cough, No Dyspnea Cardiac: No Symptoms, No Chest Pain, No Edema, No Syncope Abdominal/Gastrointestinal: No Symptoms, No Abdominal Pain, No Nausea, No Vomiting, No Diarrhea Genitourinary Symptoms: No Symptoms, No Dysuria Musculoskeletal: No Symptoms, No Back Pain, No Neck Pain Skin: No Symptoms, No Rash Neurological: No Symptoms, No Dizziness, No Focal Weakness, No Sensory Changes Psychological: No Symptoms Endocrine: No Symptoms Hematologic/Lymphatic: No Symptoms Immunological/Allergic: No Symptoms All Other Systems: Reviewed and Negative - Past Medical History Pertinent Past Medical History: Yes Neurological History: No Pertinent History ENT History: No Pertinent History Cardiac History: Deep Vein Thrombosis Respiratory History: Asthma, Bronchitis, COPD Endocrine Medical History: No Pertinent History Musculoskeletal History: Other GI Medical History: Hepatitis History: No Pertinent History Psycho-Social History: Anxiety, Bipolar, Depression Male Reproductive Disorders: No Pertinent History Other Medical History: HEP C. DVT IN LEFT LEG. CELLULTIES LEFT LEG - Past Surgical History Past Surgical History: Yes Neuro Surgical History: No Pertinent History Cardiac: No Pertinent History Respiratory: No Pertinent History Gastrointestinal: No Pertinent History Genitourinary: No Pertinent History Musculoskeletal: Orthopedic Surgery Male Surgical History: No Pertinent History Other Surgical History: cyst removed,ankle surgery. CARPAL TUNNEL IN RIGHT HAND - Social History Smoking Status: Current every day smoker How long have you smoked: 32 yrs Exposure to second hand smoke: No Alcohol Use: None Drug Use: none Patient Lives Alone: Yes Significant Family History: heart disease - Nursing Vital Signs Nursing Vital Signs: Initial Vital Signs Temperature 96.9 F 02/14/22 19:20 Pulse Rate 110 H 02/14/22 19:20 Respiratory Rate 22 02/14/22 19:20 Blood Pressure 72/35 02/14/22 19:20 O2 Sat by Pulse Oximetry 98 02/14/22 19:20 Pain Scale Pain Intensity 0 - Physical Exam General Appearance: no apparent distress, alert Eye Exam: PERRL/EOMI Ears, Nose, Throat Exam: hearing grossly normal, normal ENT inspection, normal pharynx Neck Exam: normal inspection, non-tender, supple, full range of motion Respiratory Exam: normal breath sounds, chest tenderness, lungs clear, respiratory distress Cardiovascular/Chest Exam: normal heart sounds, regular rate/rhythm Abdominal/Gastrointestinal Exam: soft, No tenderness, No distention, No mass Extremity Exam: non-tender, normal range of motion, normal inspection, no calf tenderness, no pedal edema Neurologic Exam: alert, oriented x 3, cooperative, 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 2.2 cm hepatic cyst. Gallbladder sludge/gravel. Nonobstructing right renal punctate stone. Gynecomastia) Ordered Tests: Active Orders 24 hr Category Date Time Status Sample Paster STAT Care 02/14/22 19:33 Active IV Insertion STAT Care 02/14/22 19:32 Active Pulse Oximetry (ED) STAT Care 02/14/22 19:32 Active CHEST WITH CONTRAST [CT] Stat Exams 02/14/22 21:12 Taken BLOOD CULTURE Stat Lab 02/14/22 19:50 Received CBC W DIFF Stat Lab 02/14/22 19:50 Completed CMP Stat Lab 02/14/22 19:50 Completed D-DIMER QUANTITATIVE Stat Lab 02/14/22 19:50 Completed NT PRO BNP Stat Lab 02/14/22 19:50 Completed TROPONIN Q3H Lab 02/14/22 19:50 Completed TROPONIN Q3H Lab 02/14/22 22:45 Ordered TROPONIN Q3H Lab 02/15/22 01:45 Ordered TROPONIN Q3H Lab 02/15/22 04:45 Ordered TROPONIN Q3H Lab 02/15/22 07:45 Ordered Medication Summary Discontinued Medications Generic Name Dose Route Start Last Admin Trade Name Freq PRN Reason Stop Dose Admin Albuterol/Ipratropium 3 ml 02/14/22 19:35 02/14/22 19:35 Ipratropium/Albuterol Sulfate 3 Ml Ampul.Neb IH 02/14/22 19:36 3 ml STAT ONE Administration Albuterol/Ipratropium Confirm 02/14/22 19:49 Ipratropium/Albuterol Sulfate 3 Ml Ampul.Neb Administered 02/14/22 19:50 Dose 3 ml IH .STK-MED ONE Methylprednisolone Sodium 0 mg 02/14/22 19:35 02/14/22 19:46 Succinate 125 mg/ Sterile IV 02/14/22 19:36 125 mg Water 2 ml STAT ONE Administration Methylprednisolone Sodium Succinate Confirm 02/14/22 19:43 Methylprednis Sod Succ 125 Mg/2 Ml Vial Administered 02/14/22 19:44 Dose 125 mg .ROUTE .STK-MED ONE Sterile Water Confirm 02/14/22 19:43 Water For Injection,Sterile 10 Ml Vial Administered 02/14/22 19:44 Dose 10 ml IJ .STK-MED ONE Lab/Rad Data: Laboratory Result Diagrams 02/14/22 19:50 02/14/22 19:50 Laboratory Results 02/14/22 02/14/22 02/14/22 Range/Units 19:50 19:50 19:50 WBC (4.0-10.5) x10^3/uL RBC (4.1-5.6) x10^6/uL Hgb (12.5-18.0) g/dL Hct (42-50) % MCV (78-100) fL MCH (26-32) pg MCHC (32-36) g/dL RDW (11.5-14.0) % Plt Count (150-450) x10^3/uL MPV (7.5-11.0) fL Gran % (36.0-66.0) % Immature Gran % (Auto) (0.00-0.4) % Nucleat RBC Rel Count (0.00-0.1) % Eos # (Auto) (0-0.5) x10^3/uL Immature Gran # (Auto) (0.00-0.03) x10^3u/L Absolute Lymphs (auto) (1.0-4.6) x10^3/uL Absolute Monos (auto) (0.0-1.3) x10^3/uL Absolute Nucleated RBC (0.00-0.01) x10^3u/L Lymphocytes % (24.0-44.0) % Monocytes % (0.0-12.0) % Eosinophils % (0.00-5.0) % Basophils % (0.0-0.4) % Absolute Granulocytes (1.4-6.9) x10^3/uL Basophils # (0-0.4) x10^3/uL D-Dimer 0.53 H (0.0-0.50) mg/L Sodium 139 (137-145) mmol/L Potassium 4.2 (3.5-5.1) mmol/L Chloride 102 (98-107) mmol/L Carbon Dioxide 21 L (22-30) mmol/L Anion Gap 19.7 H (5-15) MEQ/L BUN 36 H (9-20) mg/dL Creatinine 1.16 (0.66-1.25) mg/dL Estimated GFR > 60.0 ML/MIN Glucose 113 H (74-106) mg/dL Calcium 11.4 H (8.4-10.2) mg/dL Total Bilirubin 0.70 (0.2-1.3) mg/dL AST 35 (17-59) U/L ALT 39 (0-50) U/L Alkaline Phosphatase 138 H (38-126) U/L Troponin I < 0.012 (0.000-0.034) ng/mL NT-Pro-B Natriuret Pep 35.0 (0-900) pg/mL Serum Total Protein 8.2 (6.3-8.2) g/dL Albumin 4.8 (3.5-5.0) g/dL 02/14/22 Range/Units 19:50 WBC 9.8 (4.0-10.5) x10^3/uL RBC 6.58 H (4.1-5.6) x10^6/uL Hgb 21.7 H (12.5-18.0) g/dL Hct 60.9 H (42-50) % MCV 92.6 (78-100) fL MCH 33.0 H (26-32) pg MCHC 35.6 (32-36) g/dL RDW 12.9 (11.5-14.0) % Plt Count 202 (150-450) x10^3/uL MPV 10.5 (7.5-11.0) fL Gran % 51.7 (36.0-66.0) % Immature Gran % (Auto) 0.2 (0.00-0.4) % Nucleat RBC Rel Count 0.0 (0.00-0.1) % Eos # (Auto) 0.08 (0-0.5) x10^3/uL Immature Gran # (Auto) 0.02 (0.00-0.03) x10^3u/L Absolute Lymphs (auto) 3.48 (1.0-4.6) x10^3/uL Absolute Monos (auto) 1.07 (0.0-1.3) x10^3/uL Absolute Nucleated RBC 0.00 (0.00-0.01) x10^3u/L Lymphocytes % 35.6 (24.0-44.0) % Monocytes % 11.0 (0.0-12.0) % Eosinophils % 0.8 (0.00-5.0) % Basophils % 0.7 (0.0-0.4) % Absolute Granulocytes 5.05 (1.4-6.9) x10^3/uL Basophils # 0.07 (0-0.4) x10^3/uL D-Dimer (0.0-0.50) mg/L Sodium (137-145) mmol/L Potassium (3.5-5.1) mmol/L Chloride (98-107) mmol/L Carbon Dioxide (22-30) mmol/L Anion Gap (5-15) MEQ/L BUN (9-20) mg/dL Creatinine (0.66-1.25) mg/dL Estimated GFR ML/MIN Glucose (74-106) mg/dL Calcium (8.4-10.2) mg/dL Total Bilirubin (0.2-1.3) mg/dL AST (17-59) U/L ALT (0-50) U/L Alkaline Phosphatase (38-126) U/L Troponin I (0.000-0.034) ng/mL NT-Pro-B Natriuret Pep (0-900) pg/mL Serum Total Protein (6.3-8.2) g/dL Albumin (3.5-5.0) g/dL - Progress Progress: improved Air Movement: good Progress Note: Patient reassessed. He is free of chest pain. Shortness of breath has r esolved. Patient does not want to wait for his second troponin. Patient states he feels he is safe to go home because he is asymptomatic. I explained to the patient the necessity for second troponin. In spite of our discussion patient feels that he is appropriate to go home. Patient understands what he would have to leave AMA. Patient is of sound mind. Patient is appropriate to make informed and independent medical decisions. Patient understands that leaving AGAINST MEDICAL ADVICE can result in delayed diagnosis, increased risk of morbidity, mortality, short and long-term disability including . In spite of these risks, patient has decided to leave AGAINST MEDICAL ADVICE. Patient understands that he may return to our ED at any point if he reconsiders. Patient agrees to follo w-up with his primary care doctor within 48 hours for reevaluation. Patient voices no other complaints or concerns at this time. We will release patient AGAINST MEDICAL ADVICE per their request. Portions of this note were created with voice recognition technology. There may be grammatical, spelling, punctuation or sound alike errors 02/14/22 22:33 Blood Culture(s) Obtained: Yes Antibiotics given: Yes Discussed with : Edgar Counseled pt/family regarding: lab results, diagnosis, rad results - Departure Departure Disposition: AMA Clinical Impression: Gynecomastia, Cirrhosis, Hepatic cyst, Sludge in gallbladder, Right nephrolithiasis, Polycythemia, Elevated BUN Condition: Stable Critical Care Time: No Referrals: JEANNE CORBETT MD [Primary Care Provider] - Follow up/PCP as directed Additional Instructions: Discharge/Care Plan JESUS JRMARILEE PATEL was seen on 02/14/22 in the Emergency Room. The patient was counseled regarding Diagnosis,Lab results, Imaging studies, need for follow up and when to return to the Emergency Room. Prescriptions given: Discharge Note I have spoken with the patient and/or caregivers. I have explained the patient's condition, diagnosis and treatment plan based on the information available to me at this time. I have answered the patient's and/or caregiver's questions and addressed any concerns. The patient and/or caregivers have as good understanding of the patient's diagnosis, condition and treatment plan as can be expected at this point. The vital signs have been stable. The patient's condition is stable and appropriate for discharge from the emergency department. The patient will pursue further outpatient evaluation with the primary care physician or other designated or consulting physician as outlined in the discharge instructions. The patient and/or caregivers are agreeable to this plan of care and follow-up instructions have been explained in detail. The patient and/or caregivers have received these instruction. The patient/and or caregivers are aware that any significant change in condition or worsening of symptoms should prompt an immediate return to this or the closest emergency department or call 911.
[2022-02-14] MEDS ORDERED: solu-MEDROL ONE (19:43)
[2022-02-14] MEDS ORDERED: Sterile H2O 10 ml IJ ONE (19:43)
[2022-02-14 19:54] LABS: Absolute Neutrophil Ct (ANC) 5.05 x10^3/uL (1.4-6.9); Basophil (Absolute #) 0.07 x10^3/uL (0-0.4); Eosinophil % 0.8 % (0.00-5.0); Eosinophil (Absolute #) 0.08 x10^3/uL (0-0.5); Hematocrit 60.9 % (42-50); Hemoglobin 21.7 g/dL (12.5-18.0); Lymphocyte (Absolute #) 3.48 x10^3/uL (1.0-4.6); Lymphocytes % 35.6 % (24.0-44.0); Mean Cell Volume 92.6 fL (78-100); Mean Corpuscular Hgb Concent. 35.6 g/dL (32-36); Mean Platelet Volume 10.5 fL (7.5-11.0); Monocyte (Absolute #) 1.07 x10^3/uL (0.0-1.3); Neutrophil % 51.7 % (36.0-66.0); Platelet Count 202 x10^3/uL (150-450); Red Blood Count 6.58 x10^6/uL (4.1-5.6); Red Cell Distribution Width 12.9 % (11.5-14.0); White Blood Count 9.8 x10^3/uL (4.0-10.5)
[2022-02-14 20:18] LABS: ALBUMIN 4.8 g/dL (3.5-5.0); ALKALINE PHOSPHATASE 138 U/L (38-126); ANION GAP 19.7 MEQ/L (5-15); BLOOD UREA NITROGEN 36 mg/dL (9-20); CHLORIDE 102 mmol/L (98-107); Calcium 11.4 mg/dL (8.4-10.2); Carbon Dioxide 21 mmol/L (22-30); Creatinine 1 1.16 mg/dL (0.66-1.25); EST GLOMERULAR FILTRATION RATE > 60.0 ML/MIN; Glucose 113 mg/dL (74-106); Potassium 4.2 mmol/L (3.5-5.1); SGOT/AST 35 U/L (17-59); SGPT/ALT 39 U/L (0-50); SODIUM 139 mmol/L (137-145); Total Protein 8.2 g/dL (6.3-8.2)
[2022-02-14 22:08] VITALS: BP 127/76; PULSE 82
[2022-02-14 22:22] VITALS: O2SAT 98
--- NOTE | 2022-02-15 08:58 | XRAY ---
Indication: Chest pain and short of breath. Elevated d-dimer. Multiple contiguous axial images obtained through the chest using 100 cc Isovue 370 contrast and PE protocol. Comparison: None Good opacification of the pulmonary arteries to include the lobar and segmental branches. No pulmonary embolus. Heart not enlarged. Aorta is normal in course and caliber. Tiny right hilar calcified nodes. No pathologic mediastinal/hilar lymphadenopathy. Lungs demonstrates mild bilateral dependent atelectasis and scattered bilateral calcified granulomas. No suspicious pulmonary mass, infiltrate, effusion, or pneumothorax. Bony thorax intact with mild degenerative changes throughout the spine. Incidental bilateral gynecomastia. Limited upper abdomen demonstrates cirrhotic liver, 2.2 cm right lobe hepatic cyst, minimal gallbladder gravel/sludge, and nonobstructing right renal punctate calculus. Impression: 1. Negative pulmonary embolus. No acute cardiopulmonary abnormalities. 2. Chronic findings including cirrhotic liver, hepatic cyst, gallbladder gravel/sludge, demonstrating right renal micro-calculus, bilateral gynecomastia, chronic bony findings, and old granulomatous disease.
== END 2022-02-14 22:36 | disposition left against medical advice (07) ==
LOC: ED 19:19
DX: N62 Hypertrophy of breast (principal); K74.60 Unspecified cirrhosis of liver; K76.89 Other specified diseases of liver; K82.8 Other specified diseases of gallbladder; N20.0 Calculus of kidney; D75.1 Secondary polycythemia; R79.89 Other specified abnormal findings of blood chemistry; R06.02 Shortness of breath; R07.9 Chest pain, unspecified; J44.9 Chronic obstructive pulmonary disease, unspecified; Z72.0 Tobacco use
CPT/HCPCS: 36000; 36415; 71260; 80053; 83880; 84484; 85025; 85379; 87040; 93041; 94640; 94760; 96374; 99284; J2930; A9270-GY